=== PATIENT | female | born 1935 | race Caucasian/White ===

== ENCOUNTER 2022-12-02 13:33 | Inpatient (IN) | payer BC ==
[~2022-12-02] VITALS: Ht 165.1 cm; Wt 66.8 kg
[2022-12-02] MEDS ORDERED: SODIUM CHLORIDE 0.9% 1,000 ML IV ONE (14:00)
[2022-12-02] MEDS ORDERED: CEFEPIME 1,000 MG in DEXTROSE 5% WATER 50 ML IV SCH (14:45)
[2022-12-02] MEDS ORDERED: VANCOMYCIN 1G PREMIX 200 ML IV SCH (14:45)
[2022-12-02 15:00] LABS: BG BASE EXCESS -6.4 mmol/L (-2.0-2.0); BG CARBOXYHEMOGLOBIN 0.2 % (0.5-1.5); BG DEOXYHEMOGLOBIN 20.5 % (0.0-5.0); BG HCO3 ACT 16.8 mmol/L (22.0-26.0); BG METHEMOGLOBIN 0.3 % (0.0-1.5); BG OXYGEN SATURATION 79.4 % (92.0-98.5); BG PCO2 26.7 mmHg (35.0-45.0); BG PH 7.417 (7.350-7.450); BG PO2 47.9 mmHg (75.0-100.0); BG SAMPLE SITE RIGHT BRACHIAL; BG TOTAL HEMOGLOBIN 10.9 g/dL (12.0-18.0); BG VENT MODE ROOM AIR
[2022-12-02] MEDS ORDERED: CEFEPIME 1GM PREMIX 50 ML IV SCH (15:00)
[2022-12-02 15:17] LABS: CHLORIDE 113 mEq/L (98-107)
[2022-12-02 15:38] LABS: HEMATOCRIT. 30.9 % (36.0-48.0); HEMOGLOBIN. 9.6 g/dL (12.0-16.0); MEAN CORPUSCULAR HEMOGLOBIN 27.9 pg (28.0-32.0); MEAN CORPUSCULAR VOLUME 89.3 fL (81.0-99.0); MEAN PLATELET VOLUME 7.3 fl (7.4-10.4); PLATELET 619 x1000/uL (130-400); RED BLOOD CELL COUNT 3.45 mill/uL (4.2-5.4); RED CELL DISTRIBUTION WIDTH 15.7 % (11.6-14.6)
[2022-12-02 15:47] LABS: INR 1.1; PROTHROMBIN TIME 12.2 sec (9.6-11.0)
[2022-12-02] MEDS ORDERED: FUROSEMIDE 20MG/2ML VIAL IVP ONE (16:00)
[2022-12-02] MEDS ORDERED: FUROSEMIDE 40MG/4ML VIAL IVP NR ×2 (16:15→18:30)
[2022-12-02] MEDS: ASPIRIN 325MG EC TABLET PO ONE ×2 (16:30→17:42)
[2022-12-02] MEDS ORDERED: METHYLPREDNISOLONE SOD SUCC 125 MG/2 ML VIAL IV ONE (16:30)
[2022-12-02] MEDS ORDERED: FUROSEMIDE 40MG/4ML VIAL IVP ONE (16:30)
[2022-12-02] MEDS ORDERED: IPRATROPIUM/ALBUTEROL 0.5-3(2.5)MG/3ML NEB HHN ONE (16:30)
[2022-12-02 17:07] LABS: BG CARBOXYHEMOGLOBIN 0.3 % (0.5-1.5); BG DEOXYHEMOGLOBIN 3.8 % (0.0-5.0); BG HCO3 ACT 17.5 mmol/L (22.0-26.0); BG METHEMOGLOBIN 0.2 % (0.0-1.5); BG OXYGEN SATURATION 96.2 % (92.0-98.5); BG OXYHEMOGLOBIN 95.7 % (94.0-97.0); BG PCO2 27.7 mmHg (35.0-45.0); BG PH 7.418 (7.350-7.450); BG PO2 88.6 mmHg (75.0-100.0); BG SAMPLE SITE RIGHT BRACHIAL; BG TOTAL HEMOGLOBIN 9.6 g/dL (12.0-18.0); BG VENT MODE MASK - BIPAP
[2022-12-02] MEDS ORDERED: ACETAMINOPHEN 650MG SUPP PR PRN ×2 (17:15)
[2022-12-02] MEDS ORDERED: DEXTROSE 50% WATER 50ML SYRINGE IV PRN (17:15)
[2022-12-02] MEDS ORDERED: ONDANSETRON HCL 4MG/2ML INJ IV PRN (17:15)
[2022-12-02 17:39] LABS: PHOSPHORUS 4.8 mg/dL (2.5-4.9)
[2022-12-02] MEDS ORDERED: LEVOFLOXACIN 500MG PREMIX 100 ML IV SCH (18:00)
[2022-12-02 18:16] LABS: VITAMIN B12 SERUM > 2000.0 pg/mL (211-911)
[2022-12-02] MEDS ORDERED: NOREPINEPHRINE 8MG/250ML PMX 250 ML IV PRN (18:30)
[2022-12-02] MEDS ORDERED: IPRATROPIUM/ALBUTEROL 0.5-3(2.5)MG/3ML NEB HHN PRN (18:30)
[2022-12-02] MEDS ORDERED: DOCUSATE SODIUM 100MG CAPSULE PO PRN (18:45)
[2022-12-02] MEDS ORDERED: NOREPINEPHRINE 8 MG in DEXTROSE 5% WATER 250 ML IV PRN (18:45)
[2022-12-02] MEDS: IPRATROPIUM/ALBUTEROL 0.5-3(2.5)MG/3ML NEB HHN SCH (19:43)
[2022-12-02 20:10] LABS: NUCLEATED RED BLOOD CELLS 1 /100 WBC; PLATELET ESTIMATE MARKEDLY INCREASED
[2022-12-02] MEDS: BLOOD SUGAR DIAGNOSTIC STRIP TEST SCH (20:30)
[2022-12-02] MEDS: INSULIN LISPRO 100 UNITS/ML SUBCUT SCH ×2 (20:30→21:00)
[2022-12-02] MEDS ORDERED: FAMOTIDINE 20MG/2ML VIAL IV SCH (21:00)
[2022-12-02 22:30] VITALS: BP 82/38
[2022-12-03] VITALS (13 sets, daily range): BP systolic 74–111; BP diastolic 33–76
[2022-12-03 01:10] LABS: CREATINE KINASE MB FRACTION 9.6 ng/mL (0.5-3.6)
[2022-12-03] MEDS: IPRATROPIUM/ALBUTEROL 0.5-3(2.5)MG/3ML NEB HHN SCH ×4 (02:14→20:02)
[2022-12-03 03:53] LABS: HEMATOCRIT. 27.7 % (36.0-48.0); MEAN CORPUSCULAR HEMOGLOBIN 28.1 pg (28.0-32.0); MEAN CORPUSCULAR VOLUME 86.9 fL (81.0-99.0); MEAN PLATELET VOLUME 7.4 fl (7.4-10.4); PLATELET 482 x1000/uL (130-400); RED BLOOD CELL COUNT 3.19 mill/uL (4.2-5.4); RED CELL DISTRIBUTION WIDTH 15.9 % (11.6-14.6)
[2022-12-03 04:06] LABS: CHLORIDE 116 mEq/L (98-107)
[2022-12-03 04:21] LABS: CREATINE KINASE 356 IU/L (26-192); CREATINE KINASE MB FRACTION 9.8 ng/mL (0.5-3.6); HDL CHOLESTEROL 32 mg/dL (40-59); LDL CHOLESTEROL 64 mg/dL (5-100); PHOSPHORUS 5.3 mg/dL (2.5-4.9); T4 FREE 1.21 ng/dL (0.76-1.46)
[2022-12-03] MEDS: INSULIN LISPRO 100 UNITS/ML SUBCUT SCH ×4 (06:36→20:20)
[2022-12-03] MEDS: BLOOD SUGAR DIAGNOSTIC STRIP TEST SCH ×4 (06:36→20:19)
[2022-12-03] MEDS ORDERED: FUROSEMIDE 40MG/4ML VIAL IVP SCH (09:00)
[2022-12-03] MEDS ORDERED: SODIUM CHLORIDE 0.9% 250 ML IV ONE ×2 (09:00)
[2022-12-03] MEDS: ENOXAPARIN 30MG/0.3ML SYR SUBCUT SCH (09:13)
[2022-12-03 10:25] LABS: NUCLEATED RED BLOOD CELLS 3 /100 WBC; PLATELET ESTIMATE INCREASED
[2022-12-03 10:26] LABS: BG BASE EXCESS -6.4 mmol/L (-2.0-2.0); BG CARBOXYHEMOGLOBIN 0.3 % (0.5-1.5); BG DEOXYHEMOGLOBIN 1.5 % (0.0-5.0); BG FRACTION INSPIRED OXYGEN 80; BG HCO3 ACT 16.3 mmol/L (22.0-26.0); BG METHEMOGLOBIN 0.3 % (0.0-1.5); BG OXYGEN SATURATION 98.5 % (92.0-98.5); BG OXYHEMOGLOBIN 97.9 % (94.0-97.0); BG PCO2 23.7 mmHg (35.0-45.0); BG PH 7.454 (7.350-7.450); BG PO2 135.2 mmHg (75.0-100.0); BG SAMPLE SITE RIGHT BRACHIAL; BG TOTAL HEMOGLOBIN 9.6 g/dL (12.0-18.0); BG TOTAL RESPIRATORY RATE 24 b/min; BG VENT MODE MASK - BIPAP
[2022-12-03] MEDS ORDERED: MEMA10TA55 PO (10:42)
[2022-12-03] MEDS ORDERED: QUET25TA36 PO (10:42)
[2022-12-03] MEDS ORDERED: DONE10TA43 PO (10:42)
[2022-12-03 11:05] LABS: CREATINE KINASE 361 IU/L (26-192)
[2022-12-03] MEDS ORDERED: HALOPERIDOL LACTATE 5MG/ML VIAL IM SCH (12:00)
[2022-12-03] MEDS: ASPIRIN 300MG SUPP PR SCH ×2 (12:26→12:33)
[2022-12-03] MEDS: METRONIDAZOLE 500 MG PREMIX 100 ML IV SCH ×2 (12:34→21:17)
[2022-12-03 12:43] LABS: CREATINE KINASE MB FRACTION 9.9 ng/mL (0.5-3.6)
[2022-12-03 13:10] LABS: BG BASE EXCESS -7.6 mmol/L (-2.0-2.0); BG CARBOXYHEMOGLOBIN 0.3 % (0.5-1.5); BG DEOXYHEMOGLOBIN 23.2 % (0.0-5.0); BG FRACTION INSPIRED OXYGEN 44; BG HCO3 ACT 16.2 mmol/L (22.0-26.0); BG METHEMOGLOBIN 0.2 % (0.0-1.5); BG OXYGEN SATURATION 76.7 % (92.0-98.5); BG OXYHEMOGLOBIN 76.3 % (94.0-97.0); BG PCO2 27.7 mmHg (35.0-45.0); BG PH 7.386 (7.350-7.450); BG PO2 45.3 mmHg (75.0-100.0); BG SAMPLE SITE RIGHT BRACHIAL; BG TOTAL HEMOGLOBIN 9.8 g/dL (12.0-18.0); BG VENT MODE NASAL CANNULA
[2022-12-03 13:21] LABS: CLARITY URINE CLEAR (CLEAR); COLOR URINE DARK YELLOW (YELLOW); KETONES URINE TRACE (NEGATIVE); LEUKOCYTE ESTERASE URINE NEGATIVE (NEGATIVE); NITRITE URINE NEGATIVE (NEGATIVE); OCCULT BLOOD URINE NEGATIVE (NEGATIVE); PROTEIN URINE TRACE (NEGATIVE); SPECIFIC GRAVITY URINE 1.019 (1.005-1.030)
[2022-12-03] MEDS: MIDODRINE HCL 5MG TABLET PO SCH ×2 (16:05→21:17)
[2022-12-03] MEDS: MEMANTINE HCL 10MG TABLET PO SCH (16:09)
[2022-12-03] MEDS ORDERED: VANCOMYCIN 750MG PREMIX 150 ML IV NR (17:00)
[2022-12-03] MEDS ORDERED: LEVOFLOXACIN 250MG PREMIX 50 ML IV SCH (17:30)
[2022-12-03] MEDS ORDERED: DIGOXIN 500MCG/2ML AMP IV NR (18:45)
[2022-12-03] MEDS ORDERED: ALEN70TA79 MT (18:57)
[2022-12-03] MEDS ORDERED: MELA5TAB21 MT (18:57)
[2022-12-03] MEDS ORDERED: AMLO5TAB88 MT (18:57)
[2022-12-03] MEDS ORDERED: ASPI-1497 MT (18:57)
[2022-12-03] MEDS ORDERED: LOSA1TAB34 MT (18:57)
[2022-12-03] MEDS: DONEPEZIL HCL 10MG TABLET PO SCH (21:16)
[2022-12-03] MEDS: QUETIAPINE FUMARATE 25MG TABLET PO SCH (21:17)
[2022-12-04] VITALS (41 sets, daily range): BP systolic 31–101; BP diastolic 17–65
[2022-12-04] MEDS: IPRATROPIUM/ALBUTEROL 0.5-3(2.5)MG/3ML NEB HHN SCH ×4 (02:10→20:25)
[2022-12-04] MEDS: METRONIDAZOLE 500 MG PREMIX 100 ML IV SCH ×3 (05:03→20:48)
[2022-12-04 06:12] LABS: HEMATOCRIT. 26.3 % (36.0-48.0); HEMOGLOBIN. 8.5 g/dL (12.0-16.0); MEAN CORPUSCULAR HEMOGLOBIN 27.6 pg (28.0-32.0); MEAN CORPUSCULAR VOLUME 85.2 fL (81.0-99.0); MEAN PLATELET VOLUME 7.6 fl (7.4-10.4); PLATELET 396 x1000/uL (130-400); RED BLOOD CELL COUNT 3.09 mill/uL (4.2-5.4); RED CELL DISTRIBUTION WIDTH 15.7 % (11.6-14.6)
[2022-12-04] MEDS: BLOOD SUGAR DIAGNOSTIC STRIP TEST SCH ×4 (06:14→20:48)
[2022-12-04] MEDS: INSULIN LISPRO 100 UNITS/ML SUBCUT SCH ×4 (06:14→21:00)
[2022-12-04 06:21] LABS: CHLORIDE 114 mEq/L (98-107)
[2022-12-04 06:29] LABS: PHOSPHORUS 5.8 mg/dL (2.5-4.9)
[2022-12-04] MEDS: MEMANTINE HCL 10MG TABLET PO SCH ×2 (08:31→17:10)
[2022-12-04] MEDS: MIDODRINE HCL 5MG TABLET PO SCH ×3 (08:31→17:10)
[2022-12-04] MEDS: ENOXAPARIN 30MG/0.3ML SYR SUBCUT SCH (08:32)
[2022-12-04] MEDS ORDERED: ALBUMIN HUMAN 25GM/100ML (25%) IV SCH (09:00)
[2022-12-04 09:10] LABS: BG BASE EXCESS -6.9 mmol/L (-2.0-2.0); BG CARBOXYHEMOGLOBIN 0.3 % (0.5-1.5); BG DEOXYHEMOGLOBIN 10.2 % (0.0-5.0); BG FRACTION INSPIRED OXYGEN 100; BG HCO3 ACT 18.3 mmol/L (22.0-26.0); BG METHEMOGLOBIN 0.3 % (0.0-1.5); BG OXYGEN SATURATION 89.7 % (92.0-98.5); BG OXYHEMOGLOBIN 89.2 % (94.0-97.0); BG PCO2 35.6 mmHg (35.0-45.0); BG PO2 65.9 mmHg (75.0-100.0); BG SAMPLE SITE RIGHT BRACHIAL; BG VENT MODE HIGH FLOW
[2022-12-04 09:23] LABS: NUCLEATED RED BLOOD CELLS 1 /100 WBC
[2022-12-04 09:24] LABS: PLATELET ESTIMATE NORMAL
[2022-12-04] MEDS: FAMOTIDINE 20MG/2ML VIAL IV SCH (09:24)
[2022-12-04] MEDS: CALCIUM ACETATE 667MG CAPSULE PO SCH ×3 (09:25→17:10)
[2022-12-04] MEDS ORDERED: VANCOMYCIN 500MG PREMIX 100 ML IV NR (14:00)
[2022-12-04] MEDS ORDERED: LEVOFLOXACIN 500MG PREMIX 100 ML IV SCH (16:00)
[2022-12-04 18:57] LABS: BG CARBOXYHEMOGLOBIN 0.3 % (0.5-1.5); BG DEOXYHEMOGLOBIN 20.4 % (0.0-5.0); BG FRACTION INSPIRED OXYGEN 100; BG HCO3 ACT 17.7 mmol/L (22.0-26.0); BG METHEMOGLOBIN 0.4 % (0.0-1.5); BG OXYGEN SATURATION 79.5 % (92.0-98.5); BG OXYHEMOGLOBIN 78.9 % (94.0-97.0); BG PH 7.194 (7.350-7.450); BG PO2 55.8 mmHg (75.0-100.0); BG SAMPLE SITE RIGHT BRACHIAL; BG TOTAL HEMOGLOBIN 10.3 g/dL (12.0-18.0); BG TOTAL RESPIRATORY RATE 22 b/min; BG VENT MODE MASK - BIPAP
[2022-12-04] MEDS: PHENYLEPHRINE 100 MG in DEXT 5% WATER 240 ML IV PRN (19:33)
[2022-12-04] MEDS: QUETIAPINE FUMARATE 25MG TABLET PO SCH (20:48)
[2022-12-04] MEDS: DONEPEZIL HCL 10MG TABLET PO SCH (20:48)
[2022-12-05] VITALS (98 sets, daily range): BP systolic 58–142; BP diastolic 27–105
[2022-12-05] MEDS ORDERED: DIGOXIN 500MCG/2ML AMP IV NR (00:15)
[2022-12-05] MEDS: IPRATROPIUM/ALBUTEROL 0.5-3(2.5)MG/3ML NEB HHN SCH ×4 (04:39→20:11)
[2022-12-05] MEDS: PHENYLEPHRINE 100 MG in DEXT 5% WATER 240 ML IV PRN ×3 (05:43→23:25)
[2022-12-05] MEDS: BLOOD SUGAR DIAGNOSTIC STRIP TEST SCH ×4 (06:16→21:00)
[2022-12-05] MEDS: METRONIDAZOLE 500 MG PREMIX 100 ML IV SCH ×3 (06:16→22:10)
[2022-12-05 06:24] LABS: HEMATOCRIT. 27.8 % (36.0-48.0); HEMOGLOBIN. 8.6 g/dL (12.0-16.0); MEAN CORPUSCULAR HEMOGLOBIN 27.1 pg (28.0-32.0); MEAN CORPUSCULAR VOLUME 87.2 fL (81.0-99.0); MEAN PLATELET VOLUME 7.6 fl (7.4-10.4); PLATELET 412 x1000/uL (130-400); RED BLOOD CELL COUNT 3.18 mill/uL (4.2-5.4); RED CELL DISTRIBUTION WIDTH 16.4 % (11.6-14.6)
[2022-12-05 06:39] LABS: CHLORIDE 112 mEq/L (98-107)
[2022-12-05 06:48] LABS: PHOSPHORUS 5.6 mg/dL (2.5-4.9)
[2022-12-05] MEDS: INSULIN LISPRO 100 UNITS/ML SUBCUT SCH ×4 (07:00→21:00)
[2022-12-05] MEDS: FAMOTIDINE 20MG/2ML VIAL IV SCH (08:00)
[2022-12-05] MEDS: MIDODRINE HCL 5MG TABLET PO SCH ×3 (08:00→17:00)
[2022-12-05] MEDS: CALCIUM ACETATE 667MG CAPSULE PO SCH ×3 (08:00→17:00)
[2022-12-05] MEDS: ENOXAPARIN 30MG/0.3ML SYR SUBCUT SCH (08:00)
[2022-12-05] MEDS: MEMANTINE HCL 10MG TABLET PO SCH ×2 (08:03→17:00)
[2022-12-05] MEDS: FERROUS SULFATE 325MG TABLET PO SCH (08:03)
[2022-12-05] MEDS ORDERED: ASPIRIN 300MG SUPP PR SCH (09:00)
[2022-12-05] MEDS: CITRIC ACID/SODIUM CITRATE SOLN 30ML UDC PO SCH ×3 (09:05→17:00)
[2022-12-05] MEDS: ASPIRIN 81MG TABLET PO SCH (09:05)
[2022-12-05 09:09] LABS: BG CARBOXYHEMOGLOBIN 0.3 % (0.5-1.5); BG DEOXYHEMOGLOBIN 4.3 % (0.0-5.0); BG FRACTION INSPIRED OXYGEN 100; BG HCO3 ACT 18.6 mmol/L (22.0-26.0); BG METHEMOGLOBIN 0.3 % (0.0-1.5); BG OXYGEN SATURATION 95.7 % (92.0-98.5); BG OXYHEMOGLOBIN 95.1 % (94.0-97.0); BG PCO2 33.3 mmHg (35.0-45.0); BG PH 7.365 (7.350-7.450); BG PO2 86.1 mmHg (75.0-100.0); BG SAMPLE SITE RIGHT RADIAL; BG TOTAL HEMOGLOBIN 9.7 g/dL (12.0-18.0); BG VENT MODE MASK - BIPAP
[2022-12-05 10:20] LABS: NUCLEATED RED BLOOD CELLS 6 /100 WBC; PLATELET ESTIMATE SLIGHTLY INCREASED
[2022-12-05] MEDS ORDERED: NOREPINEPHRINE 32 MG in DEXT 5% WATER 218 ML IV PRN (11:00)
[2022-12-05] MEDS: VANCOMYCIN 750MG PREMIX 150 ML IV SCH (14:04)
[2022-12-05] MEDS ORDERED: LORAZEPAM 2MG/ML CPJ IV PRN (15:15)
[2022-12-05] MEDS ORDERED: AMIODARONE HCL 150 MG in DEXT 5% WATER 100 ML IV NR (16:30)
[2022-12-05] MEDS: METHYLPREDNISOLONE SOD SUCC 125 MG/2 ML VIAL IV SCH ×2 (17:30→23:25)
[2022-12-05] MEDS: DONEPEZIL HCL 10MG TABLET PO SCH (21:00)
[2022-12-05] MEDS: QUETIAPINE FUMARATE 25MG TABLET PO SCH (21:00)
[2022-12-06] VITALS (99 sets, daily range): BP systolic 68–132; BP diastolic 23–94
[2022-12-06] MEDS: IPRATROPIUM/ALBUTEROL 0.5-3(2.5)MG/3ML NEB HHN SCH ×4 (00:25→21:22)
[2022-12-06] MEDS: METRONIDAZOLE 500 MG PREMIX 100 ML IV SCH (05:01)
[2022-12-06] MEDS: METHYLPREDNISOLONE SOD SUCC 125 MG/2 ML VIAL IV SCH ×3 (05:01→17:34)
[2022-12-06 05:36] LABS: HEMATOCRIT 31.2 % (36.0-48.0); HEMOGLOBIN 10.1 g/dL (12.0-16.0); MEAN CORPUSCULAR HEMOGLOBIN 27.5 pg (28.0-32.0); MEAN CORPUSCULAR VOLUME 85.3 fL (81.0-99.0); PLATELET 423 x1000/uL (130-400); RED BLOOD CELL COUNT 3.66 mill/uL (4.2-5.4)
[2022-12-06 06:02] LABS: PHOSPHORUS 4.3 mg/dL (2.5-4.9)
[2022-12-06] MEDS: BLOOD SUGAR DIAGNOSTIC STRIP TEST SCH ×4 (06:30→21:41)
[2022-12-06] MEDS: INSULIN LISPRO 100 UNITS/ML SUBCUT SCH ×4 (07:00→21:00)
[2022-12-06] MEDS ORDERED: POTASSIUM CHLORIDE 20MEQ/PACKET PO NR (08:00)
[2022-12-06 08:06] LABS: BG BASE EXCESS -7.3 mmol/L (-2.0-2.0); BG CARBOXYHEMOGLOBIN 0.3 % (0.5-1.5); BG DEOXYHEMOGLOBIN 1.6 % (0.0-5.0); BG HCO3 ACT 16.9 mmol/L (22.0-26.0); BG METHEMOGLOBIN 0.3 % (0.0-1.5); BG OXYGEN SATURATION 98.4 % (92.0-98.5); BG OXYHEMOGLOBIN 97.8 % (94.0-97.0); BG PCO2 29.9 mmHg (35.0-45.0); BG PH 7.369 (7.350-7.450); BG PO2 136.4 mmHg (75.0-100.0); BG SAMPLE SITE RIGHT RADIAL; BG TOTAL HEMOGLOBIN 11.1 g/dL (12.0-18.0); BG VENT MODE MASK - BIPAP
[2022-12-06] MEDS: CITRIC ACID/SODIUM CITRATE SOLN 30ML UDC PO SCH ×3 (08:08→16:36)
[2022-12-06] MEDS: ASPIRIN 81MG TABLET PO SCH (08:08)
[2022-12-06] MEDS: MEMANTINE HCL 10MG TABLET PO SCH ×2 (08:09→16:36)
[2022-12-06] MEDS: FERROUS SULFATE 325MG TABLET PO SCH (08:09)
[2022-12-06] MEDS: MIDODRINE HCL 5MG TABLET PO SCH ×3 (08:09→16:36)
[2022-12-06] MEDS: CALCIUM ACETATE 667MG CAPSULE PO SCH ×3 (08:09→16:36)
[2022-12-06] MEDS: FAMOTIDINE 20MG/2ML VIAL IV SCH (08:26)
[2022-12-06] MEDS: ENOXAPARIN 30MG/0.3ML SYR SUBCUT SCH (08:27)
[2022-12-06] MEDS: FUROSEMIDE 20MG/2ML VIAL IVP SCH (08:32)
[2022-12-06] MEDS: PHENYLEPHRINE 100 MG in DEXT 5% WATER 240 ML IV PRN ×2 (08:44→22:53)
[2022-12-06] MEDS ORDERED: FUROSEMIDE 20MG/2ML VIAL IVP SCH (09:00)
[2022-12-06] MEDS ORDERED: KCL 20MEQ/100ML PREMIX 100 ML IV NR (09:30)
[2022-12-06] MEDS ORDERED: MEROPENEM-0.9% SODIUM CHLORIDE 100 ML IV SCH (14:00)
[2022-12-06] MEDS: MEROPENEM-0.9% SODIUM CHLORIDE 50 ML IV SCH (14:08)
[2022-12-06] MEDS: VANCOMYCIN 750MG PREMIX 150 ML IV SCH (15:47)
[2022-12-06] MEDS: QUETIAPINE FUMARATE 25MG TABLET PO SCH (21:00)
[2022-12-06] MEDS: DONEPEZIL HCL 10MG TABLET PO SCH (21:00)
[2022-12-06] MEDS ORDERED: DIGOXIN 500MCG/2ML AMP IV NR (23:15)
[2022-12-07] VITALS (95 sets, daily range): BP systolic 66–130; BP diastolic 25–93
[2022-12-07] MEDS: METHYLPREDNISOLONE SOD SUCC 125 MG/2 ML VIAL IV SCH ×4 (00:20→18:01)
[2022-12-07] MEDS: MEROPENEM-0.9% SODIUM CHLORIDE 50 ML IV SCH ×2 (02:12→13:22)
[2022-12-07] MEDS: IPRATROPIUM/ALBUTEROL 0.5-3(2.5)MG/3ML NEB HHN SCH ×4 (02:27→21:30)
[2022-12-07 04:19] LABS: HEMATOCRIT. 32.2 % (36.0-48.0); HEMOGLOBIN. 10.2 g/dL (12.0-16.0); MEAN CORPUSCULAR HEMOGLOBIN 26.8 pg (28.0-32.0); MEAN CORPUSCULAR VOLUME 84.5 fL (81.0-99.0); MEAN PLATELET VOLUME 7.8 fl (7.4-10.4); PLATELET 369 x1000/uL (130-400); RED BLOOD CELL COUNT 3.81 mill/uL (4.2-5.4); RED CELL DISTRIBUTION WIDTH 15.9 % (11.6-14.6)
[2022-12-07 05:05] LABS: PHOSPHORUS 4.1 mg/dL (2.5-4.9)
[2022-12-07 05:23] LABS: PLATELET ESTIMATE NORMAL
[2022-12-07] MEDS: BLOOD SUGAR DIAGNOSTIC STRIP TEST SCH ×5 (06:30→20:24)
[2022-12-07] MEDS: INSULIN LISPRO 100 UNITS/ML SUBCUT SCH ×5 (07:00→21:00)
[2022-12-07] MEDS: FUROSEMIDE 20MG/2ML VIAL IVP SCH (08:38)
[2022-12-07] MEDS: FAMOTIDINE 20MG/2ML VIAL IV SCH (08:38)
[2022-12-07] MEDS: CALCIUM ACETATE 667MG CAPSULE PO SCH ×3 (08:38→16:58)
[2022-12-07] MEDS: CITRIC ACID/SODIUM CITRATE SOLN 30ML UDC PO SCH ×3 (08:38→16:58)
[2022-12-07] MEDS: MEMANTINE HCL 10MG TABLET PO SCH ×2 (08:38→16:58)
[2022-12-07] MEDS: ASPIRIN 81MG TABLET PO SCH (08:39)
[2022-12-07] MEDS: MIDODRINE HCL 5MG TABLET PO SCH ×3 (08:39→16:58)
[2022-12-07] MEDS: ENOXAPARIN 30MG/0.3ML SYR SUBCUT SCH (08:39)
[2022-12-07] MEDS: FERROUS SULFATE 325MG TABLET PO SCH (08:39)
[2022-12-07] MEDS: PHENYLEPHRINE 100 MG in DEXT 5% WATER 240 ML IV PRN ×2 (10:15→20:34)
[2022-12-07] MEDS ORDERED: VASOPRESSIN 20 UNIT in SODIUM CHLORIDE 0.9% 99 ML IV PRN (11:15)
[2022-12-07] MEDS ORDERED: DEXTROSE 50% WATER 50ML SYRINGE IV PRN (11:30)
[2022-12-07] MEDS: VANCOMYCIN 750MG PREMIX 150 ML IV SCH (14:59)
[2022-12-07] MEDS: QUETIAPINE FUMARATE 25MG TABLET PO SCH (20:27)
[2022-12-07] MEDS: DONEPEZIL HCL 10MG TABLET PO SCH (20:36)
[2022-12-08] VITALS (93 sets, daily range): BP systolic 45–143; BP diastolic 16–98
[2022-12-08] MEDS: METHYLPREDNISOLONE SOD SUCC 125 MG/2 ML VIAL IV SCH ×2 (00:06→05:20)
[2022-12-08] MEDS: MEROPENEM-0.9% SODIUM CHLORIDE 50 ML IV SCH ×2 (01:22→14:55)
[2022-12-08] MEDS: IPRATROPIUM/ALBUTEROL 0.5-3(2.5)MG/3ML NEB HHN SCH ×4 (03:11→20:32)
[2022-12-08] MEDS: INSULIN LISPRO 100 UNITS/ML SUBCUT SCH ×4 (05:47→21:00)
[2022-12-08] MEDS: BLOOD SUGAR DIAGNOSTIC STRIP TEST SCH ×4 (05:47→20:45)
[2022-12-08 05:57] LABS: HEMATOCRIT. 33.7 % (36.0-48.0); HEMOGLOBIN. 10.8 g/dL (12.0-16.0); MEAN CORPUSCULAR HEMOGLOBIN 27.2 pg (28.0-32.0); PLATELET 253 x1000/uL (130-400); RED BLOOD CELL COUNT 3.97 mill/uL (4.2-5.4); RED CELL DISTRIBUTION WIDTH 15.9 % (11.6-14.6)
[2022-12-08 06:06] LABS: CHLORIDE 115 mEq/L (98-107)
[2022-12-08 06:16] LABS: PHOSPHORUS 4.1 mg/dL (2.5-4.9)
[2022-12-08 06:52] LABS: PLATELET ESTIMATE NORMAL
[2022-12-08 07:43] LABS: BG BASE EXCESS -3.2 mmol/L (-2.0-2.0); BG CARBOXYHEMOGLOBIN 0.4 % (0.5-1.5); BG DEOXYHEMOGLOBIN 8.3 % (0.0-5.0); BG HCO3 ACT 20.4 mmol/L (22.0-26.0); BG METHEMOGLOBIN 0.2 % (0.0-1.5); BG OXYGEN SATURATION 91.6 % (92.0-98.5); BG OXYHEMOGLOBIN 91.1 % (94.0-97.0); BG PCO2 32.3 mmHg (35.0-45.0); BG PH 7.419 (7.350-7.450); BG SAMPLE SITE RIGHT RADIAL; BG TOTAL HEMOGLOBIN 12.2 g/dL (12.0-18.0); BG VENT MODE MASK - BIPAP
[2022-12-08] MEDS: MIDODRINE HCL 5MG TABLET PO SCH ×3 (08:05→16:18)
[2022-12-08] MEDS: ENOXAPARIN 30MG/0.3ML SYR SUBCUT SCH (08:05)
[2022-12-08] MEDS: FAMOTIDINE 20MG/2ML VIAL IV SCH (08:05)
[2022-12-08] MEDS: FERROUS SULFATE 325MG TABLET PO SCH (08:05)
[2022-12-08] MEDS: FUROSEMIDE 20MG/2ML VIAL IVP SCH (08:05)
[2022-12-08] MEDS: MEMANTINE HCL 10MG TABLET PO SCH ×2 (08:05→16:18)
[2022-12-08] MEDS: CALCIUM ACETATE 667MG CAPSULE PO SCH ×3 (08:06→16:18)
[2022-12-08] MEDS: ASPIRIN 81MG TABLET PO SCH (08:06)
[2022-12-08] MEDS: DEXTROSE 5% WATER 1,000 ML IV SCH (08:09)
[2022-12-08] MEDS: METHYLPREDNISOLONE SOD SUCC 40 MG/ML VIAL IV SCH ×2 (13:35→21:29)
[2022-12-08] MEDS: PHENYLEPHRINE 100 MG in DEXT 5% WATER 240 ML IV PRN (14:55)
[2022-12-08] MEDS: QUETIAPINE FUMARATE 25MG TABLET PO SCH (20:45)
[2022-12-08] MEDS: DONEPEZIL HCL 10MG TABLET PO SCH (21:04)
[2022-12-09] VITALS (95 sets, daily range): BP systolic 78–170; BP diastolic 25–151
[2022-12-09] MEDS: MEROPENEM-0.9% SODIUM CHLORIDE 50 ML IV SCH ×2 (01:20→13:10)
[2022-12-09] MEDS: IPRATROPIUM/ALBUTEROL 0.5-3(2.5)MG/3ML NEB HHN SCH ×4 (02:15→20:24)
[2022-12-09] MEDS: DEXTROSE 5% WATER 1,000 ML IV SCH (05:21)
[2022-12-09] MEDS: METHYLPREDNISOLONE SOD SUCC 40 MG/ML VIAL IV SCH ×3 (05:24→21:21)
[2022-12-09] MEDS: BLOOD SUGAR DIAGNOSTIC STRIP TEST SCH ×4 (05:38→21:12)
[2022-12-09] MEDS: INSULIN LISPRO 100 UNITS/ML SUBCUT SCH ×4 (05:51→21:21)
[2022-12-09 05:54] LABS: HEMATOCRIT. 31.4 % (36.0-48.0); HEMOGLOBIN. 10.1 g/dL (12.0-16.0); MEAN CORPUSCULAR HEMOGLOBIN 27.3 pg (28.0-32.0); MEAN CORPUSCULAR VOLUME 85.1 fL (81.0-99.0); MEAN PLATELET VOLUME 8.6 fl (7.4-10.4); PLATELET 195 x1000/uL (130-400); RED BLOOD CELL COUNT 3.69 mill/uL (4.2-5.4); RED CELL DISTRIBUTION WIDTH 16.3 % (11.6-14.6)
[2022-12-09 06:01] LABS: CHLORIDE 115 mEq/L (98-107)
[2022-12-09 06:15] LABS: PHOSPHORUS 3.9 mg/dL (2.5-4.9)
[2022-12-09] MEDS: FAMOTIDINE 20MG/2ML VIAL IV SCH (08:23)
[2022-12-09] MEDS: ASPIRIN 81MG TABLET PO SCH (08:23)
[2022-12-09] MEDS: FERROUS SULFATE 325MG TABLET PO SCH (08:23)
[2022-12-09] MEDS: CALCIUM ACETATE 667MG CAPSULE PO SCH ×3 (08:23→17:30)
[2022-12-09] MEDS: FUROSEMIDE 20MG/2ML VIAL IVP SCH (08:23)
[2022-12-09] MEDS: MEMANTINE HCL 10MG TABLET PO SCH ×2 (08:23→17:30)
[2022-12-09] MEDS: ENOXAPARIN 30MG/0.3ML SYR SUBCUT SCH (08:24)
[2022-12-09] MEDS: MIDODRINE HCL 5MG TABLET PO SCH ×3 (08:24→17:30)
[2022-12-09 09:19] LABS: NUCLEATED RED BLOOD CELLS 3 /100 WBC; PLATELET ESTIMATE NORMAL
[2022-12-09 10:07] LABS: BG BASE EXCESS -1.4 mmol/L (-2.0-2.0); BG CARBOXYHEMOGLOBIN 0.1 % (0.5-1.5); BG DEOXYHEMOGLOBIN 1.3 % (0.0-5.0); BG FRACTION INSPIRED OXYGEN 50; BG HCO3 ACT 22.3 mmol/L (22.0-26.0); BG METHEMOGLOBIN 0.3 % (0.0-1.5); BG OXYGEN SATURATION 98.7 % (92.0-98.5); BG OXYHEMOGLOBIN 98.3 % (94.0-97.0); BG PCO2 33.6 mmHg (35.0-45.0); BG PH 7.439 (7.350-7.450); BG PO2 157.7 mmHg (75.0-100.0); BG SAMPLE SITE RIGHT RADIAL; BG TOTAL HEMOGLOBIN 10.9 g/dL (12.0-18.0); BG VENT MODE MASK - BIPAP
[2022-12-09] MEDS ORDERED: MIDODRINE HCL 5MG TABLET PO SCH (11:15)
[2022-12-09] MEDS: QUETIAPINE FUMARATE 25MG TABLET PO SCH (21:00)
[2022-12-09] MEDS: DONEPEZIL HCL 10MG TABLET PO SCH (21:09)
[2022-12-10] VITALS (93 sets, daily range): BP systolic 83–131; BP diastolic 45–101
[2022-12-10] MEDS: IPRATROPIUM/ALBUTEROL 0.5-3(2.5)MG/3ML NEB HHN SCH ×4 (00:45→20:13)
[2022-12-10] MEDS: MEROPENEM-0.9% SODIUM CHLORIDE 50 ML IV SCH ×2 (02:18→14:10)
[2022-12-10 05:11] LABS: HEMATOCRIT. 30.6 % (36.0-48.0); HEMOGLOBIN. 9.7 g/dL (12.0-16.0); MEAN CORPUSCULAR HEMOGLOBIN 26.9 pg (28.0-32.0); MEAN CORPUSCULAR VOLUME 84.7 fL (81.0-99.0); MEAN PLATELET VOLUME 8.6 fl (7.4-10.4); PLATELET 201 x1000/uL (130-400); RED BLOOD CELL COUNT 3.61 mill/uL (4.2-5.4); RED CELL DISTRIBUTION WIDTH 16.3 % (11.6-14.6)
[2022-12-10 05:25] LABS: CHLORIDE 112 mEq/L (98-107)
[2022-12-10 05:35] LABS: PHOSPHORUS 3.5 mg/dL (2.5-4.9)
[2022-12-10] MEDS: BLOOD SUGAR DIAGNOSTIC STRIP TEST SCH ×4 (05:48→23:36)
[2022-12-10] MEDS: METHYLPREDNISOLONE SOD SUCC 40 MG/ML VIAL IV SCH ×3 (06:00→21:30)
[2022-12-10] MEDS: INSULIN LISPRO 100 UNITS/ML SUBCUT SCH ×4 (06:01→23:37)
[2022-12-10 06:34] LABS: PLATELET ESTIMATE NORMAL
[2022-12-10] MEDS: DEXTROSE 5% WATER 1,000 ML IV SCH (07:14)
[2022-12-10 07:58] LABS: BG BASE EXCESS -2.1 mmol/L (-2.0-2.0); BG CARBOXYHEMOGLOBIN 0.3 % (0.5-1.5); BG HCO3 ACT 22.1 mmol/L (22.0-26.0); BG METHEMOGLOBIN 0.4 % (0.0-1.5); BG OXYHEMOGLOBIN 97.3 % (94.0-97.0); BG PCO2 35.8 mmHg (35.0-45.0); BG PH 7.409 (7.350-7.450); BG PO2 110.3 mmHg (75.0-100.0); BG SAMPLE SITE RIGHT RADIAL; BG TOTAL HEMOGLOBIN 11.2 g/dL (12.0-18.0); BG VENT MODE VAPOTHERM
[2022-12-10] MEDS: FAMOTIDINE 20MG/2ML VIAL IV SCH (08:43)
[2022-12-10] MEDS: CALCIUM ACETATE 667MG CAPSULE PO SCH ×3 (08:44→17:00)
[2022-12-10] MEDS: FERROUS SULFATE 325MG TABLET PO SCH (08:44)
[2022-12-10] MEDS: MIDODRINE HCL 5MG TABLET PO SCH ×3 (08:44→17:00)
[2022-12-10] MEDS: FUROSEMIDE 20MG/2ML VIAL IVP SCH (08:44)
[2022-12-10] MEDS: ASPIRIN 81MG TABLET PO SCH (08:44)
[2022-12-10] MEDS: ENOXAPARIN 30MG/0.3ML SYR SUBCUT SCH (08:44)
[2022-12-10] MEDS: MEMANTINE HCL 10MG TABLET PO SCH ×2 (08:44→17:00)
[2022-12-10] MEDS: DONEPEZIL HCL 10MG TABLET PO SCH (20:53)
[2022-12-10] MEDS: QUETIAPINE FUMARATE 25MG TABLET PO SCH (20:53)
[2022-12-11] VITALS (73 sets, daily range): BP systolic 85–125; BP diastolic 43–83
[2022-12-11] MEDS: IPRATROPIUM/ALBUTEROL 0.5-3(2.5)MG/3ML NEB HHN SCH ×4 (00:27→21:25)
[2022-12-11] MEDS: MEROPENEM-0.9% SODIUM CHLORIDE 50 ML IV SCH (03:21)
[2022-12-11] MEDS: BLOOD SUGAR DIAGNOSTIC STRIP TEST SCH ×3 (05:54→17:02)
[2022-12-11] MEDS: INSULIN LISPRO 100 UNITS/ML SUBCUT SCH ×3 (05:59→17:11)
[2022-12-11] MEDS: METHYLPREDNISOLONE SOD SUCC 40 MG/ML VIAL IV SCH (05:59)
[2022-12-11 06:03] LABS: HEMATOCRIT. 32.2 % (36.0-48.0); HEMOGLOBIN. 10.4 g/dL (12.0-16.0); MEAN CORPUSCULAR HEMOGLOBIN 26.8 pg (28.0-32.0); MEAN CORPUSCULAR VOLUME 83.3 fL (81.0-99.0); MEAN PLATELET VOLUME 8.7 fl (7.4-10.4); PLATELET 195 x1000/uL (130-400); RED BLOOD CELL COUNT 3.87 mill/uL (4.2-5.4); RED CELL DISTRIBUTION WIDTH 16.5 % (11.6-14.6)
[2022-12-11 06:44] LABS: CHLORIDE 112 mEq/L (98-107)
[2022-12-11 06:52] LABS: PHOSPHORUS 3.3 mg/dL (2.5-4.9)
[2022-12-11] MEDS: FERROUS SULFATE 325MG TABLET PO SCH (08:25)
[2022-12-11] MEDS: DEXTROSE 5% WATER 1,000 ML IV SCH (08:25)
[2022-12-11] MEDS: FUROSEMIDE 20MG/2ML VIAL IVP SCH (08:25)
[2022-12-11] MEDS: CALCIUM ACETATE 667MG CAPSULE PO SCH ×3 (08:25→17:08)
[2022-12-11] MEDS: ASPIRIN 81MG TABLET PO SCH (08:25)
[2022-12-11] MEDS: FAMOTIDINE 20MG/2ML VIAL IV SCH (08:25)
[2022-12-11] MEDS: MIDODRINE HCL 5MG TABLET PO SCH ×3 (08:26→17:08)
[2022-12-11] MEDS: ENOXAPARIN 30MG/0.3ML SYR SUBCUT SCH (08:26)
[2022-12-11 08:28] LABS: BG BASE EXCESS 0.7 mmol/L (-2.0-2.0); BG CARBOXYHEMOGLOBIN 0.3 % (0.5-1.5); BG DEOXYHEMOGLOBIN 0.9 % (0.0-5.0); BG HCO3 ACT 24.2 mmol/L (22.0-26.0); BG METHEMOGLOBIN 0.4 % (0.0-1.5); BG OXYGEN SATURATION 99.1 % (92.0-98.5); BG OXYHEMOGLOBIN 98.4 % (94.0-97.0); BG PCO2 34.5 mmHg (35.0-45.0); BG PH 7.463 (7.350-7.450); BG PO2 159.8 mmHg (75.0-100.0); BG SAMPLE SITE RIGHT RADIAL; BG TOTAL HEMOGLOBIN 10.8 g/dL (12.0-18.0); BG VENT MODE VAPOTHERM
[2022-12-11] MEDS: MEMANTINE HCL 10MG TABLET PO SCH ×2 (08:32→17:08)
[2022-12-11 08:48] LABS: NUCLEATED RED BLOOD CELLS 2 /100 WBC
[2022-12-11 08:49] LABS: PLATELET ESTIMATE NORMAL
[2022-12-11] MEDS: METRONIDAZOLE 500 MG PREMIX 100 ML IV SCH ×2 (14:13→22:15)
[2022-12-11 20:18] LABS: CLARITY URINE CLEAR (CLEAR); COLOR URINE YELLOW (YELLOW); KETONES URINE NEGATIVE (NEGATIVE); LEUKOCYTE ESTERASE URINE NEGATIVE (NEGATIVE); NITRITE URINE NEGATIVE (NEGATIVE); OCCULT BLOOD URINE 2+ (NEGATIVE); PH URINE 5.5 (4.5-8.0); PROTEIN URINE NEGATIVE (NEGATIVE); SPECIFIC GRAVITY URINE 1.015 (1.005-1.030); UROBILINOGEN URINE 0.2 E.U./dL (0.2-1.0)
[2022-12-11] MEDS ORDERED: METHYLPREDNISOLONE SOD SUCC 40 MG/ML VIAL IV SCH (21:00)
[2022-12-11] MEDS: QUETIAPINE FUMARATE 25MG TABLET PO SCH (22:15)
[2022-12-11] MEDS: DONEPEZIL HCL 10MG TABLET PO SCH (22:15)
[2022-12-12] VITALS (20 sets, daily range): BP systolic 98–121; BP diastolic 47–74
[2022-12-12] MEDS: BLOOD SUGAR DIAGNOSTIC STRIP TEST SCH ×4 (00:19→18:47)
[2022-12-12] MEDS: INSULIN LISPRO 100 UNITS/ML SUBCUT SCH ×4 (00:20→18:00)
[2022-12-12] MEDS: IPRATROPIUM/ALBUTEROL 0.5-3(2.5)MG/3ML NEB HHN SCH ×4 (02:43→20:28)
[2022-12-12] MEDS: METRONIDAZOLE 500 MG PREMIX 100 ML IV SCH ×3 (05:56→22:17)
[2022-12-12] MEDS: MEMANTINE HCL 10MG TABLET PO SCH ×2 (09:00→17:43)
[2022-12-12] MEDS: FUROSEMIDE 20MG/2ML VIAL IVP SCH (09:43)
[2022-12-12] MEDS: FAMOTIDINE 20MG/2ML VIAL IV SCH (09:43)
[2022-12-12] MEDS: FERROUS SULFATE 325MG TABLET PO SCH (09:43)
[2022-12-12] MEDS: ASPIRIN 81MG TABLET PO SCH (09:43)
[2022-12-12] MEDS: CALCIUM ACETATE 667MG CAPSULE PO SCH ×3 (09:45→17:43)
[2022-12-12] MEDS: MIDODRINE HCL 5MG TABLET PO SCH ×3 (09:45→17:44)
[2022-12-12] MEDS: ENOXAPARIN 30MG/0.3ML SYR SUBCUT SCH (09:46)
[2022-12-12] MEDS ORDERED: IPRATROPIUM BROMIDE (0.02%) 0.5MG/2.5ML NEB HHN SCH (18:00)
[2022-12-12] MEDS ORDERED: ALBUTEROL (0.083%) 2.5MG/3ML NEB HHN SCH (18:00)
[2022-12-13] VITALS (12 sets, daily range): BP systolic 103–121; BP diastolic 54–72
[2022-12-13] MEDS: INSULIN LISPRO 100 UNITS/ML SUBCUT SCH ×4 (01:17→18:14)
[2022-12-13] MEDS: IPRATROPIUM/ALBUTEROL 0.5-3(2.5)MG/3ML NEB HHN SCH ×4 (01:48→20:51)
[2022-12-13] MEDS: METRONIDAZOLE 500 MG PREMIX 100 ML IV SCH ×3 (06:37→22:32)
[2022-12-13] MEDS: BLOOD SUGAR DIAGNOSTIC STRIP TEST SCH ×4 (06:38→18:59)
[2022-12-13] MEDS: METHYLPREDNISOLONE SOD SUCC 40 MG/ML VIAL IV SCH (09:51)
[2022-12-13] MEDS: MIDODRINE HCL 5MG TABLET PO SCH ×3 (09:51→17:49)
[2022-12-13] MEDS: CALCIUM ACETATE 667MG CAPSULE PO SCH ×3 (09:51→17:49)
[2022-12-13] MEDS: ASPIRIN 81MG TABLET PO SCH (09:52)
[2022-12-13] MEDS: ENOXAPARIN 30MG/0.3ML SYR SUBCUT SCH (09:52)
[2022-12-13] MEDS: FUROSEMIDE 20MG/2ML VIAL IVP SCH (09:53)
[2022-12-13] MEDS: FERROUS SULFATE 325MG TABLET PO SCH (10:13)
[2022-12-13] MEDS: QUETIAPINE FUMARATE 25MG TABLET PO SCH (22:32)
[2022-12-13] MEDS: DONEPEZIL HCL 10MG TABLET PO SCH (22:33)
[2022-12-14] VITALS (12 sets, daily range): BP systolic 98–140; BP diastolic 47–110
[2022-12-14] MEDS: INSULIN LISPRO 100 UNITS/ML SUBCUT SCH ×4 (00:51→18:36)
[2022-12-14] MEDS: BLOOD SUGAR DIAGNOSTIC STRIP TEST SCH ×4 (00:51→18:29)
[2022-12-14] MEDS: IPRATROPIUM/ALBUTEROL 0.5-3(2.5)MG/3ML NEB HHN SCH ×4 (02:24→21:09)
[2022-12-14] MEDS: METRONIDAZOLE 500 MG PREMIX 100 ML IV SCH ×3 (05:43→21:11)
[2022-12-14 07:02] LABS: HEMATOCRIT. 32.4 % (36.0-48.0); HEMOGLOBIN. 10.1 g/dL (12.0-16.0); MEAN CORPUSCULAR HEMOGLOBIN 26.3 pg (28.0-32.0); MEAN CORPUSCULAR VOLUME 84.3 fL (81.0-99.0); MEAN PLATELET VOLUME 9.7 fl (7.4-10.4); PLATELET 267 x1000/uL (130-400); RED BLOOD CELL COUNT 3.84 mill/uL (4.2-5.4); RED CELL DISTRIBUTION WIDTH 16.4 % (11.6-14.6)
[2022-12-14 07:43] LABS: CHLORIDE 114 mEq/L (98-107)
[2022-12-14] MEDS: FERROUS SULFATE 325MG TABLET PO SCH (09:19)
[2022-12-14] MEDS: ENOXAPARIN 30MG/0.3ML SYR SUBCUT SCH (09:19)
[2022-12-14] MEDS: CALCIUM ACETATE 667MG CAPSULE PO SCH ×3 (09:19→18:35)
[2022-12-14] MEDS: ASPIRIN 81MG TABLET PO SCH (09:19)
[2022-12-14] MEDS: MIDODRINE HCL 5MG TABLET PO SCH ×3 (09:19→18:35)
[2022-12-14] MEDS: QUETIAPINE FUMARATE 25MG TABLET PO SCH (09:20)
[2022-12-14] MEDS: METHYLPREDNISOLONE SOD SUCC 40 MG/ML VIAL IV SCH (09:29)
[2022-12-14] MEDS: SODIUM CHLORIDE 0.45% 1,000 ML IV SCH (09:30)
[2022-12-14 13:06] LABS: PLATELET ESTIMATE NORMAL
[2022-12-14] MEDS: MICAFUNGIN 100 MG in SODIUM CHLORIDE 0.9% 100 ML IV SCH (21:05)
[2022-12-14] MEDS: DONEPEZIL HCL 10MG TABLET PO SCH (21:05)
[2022-12-15] VITALS (12 sets, daily range): BP systolic 111–148; BP diastolic 73–110
[2022-12-15] MEDS: INSULIN LISPRO 100 UNITS/ML SUBCUT SCH ×5 (01:36→23:07)
[2022-12-15] MEDS: SODIUM CHLORIDE 0.45% 1,000 ML IV SCH (01:39)
[2022-12-15] MEDS: IPRATROPIUM/ALBUTEROL 0.5-3(2.5)MG/3ML NEB HHN SCH ×2 (02:26→08:58)
[2022-12-15] MEDS: METRONIDAZOLE 500 MG PREMIX 100 ML IV SCH ×3 (05:11→22:08)
[2022-12-15] MEDS: BLOOD SUGAR DIAGNOSTIC STRIP TEST SCH ×4 (05:11→18:53)
[2022-12-15 07:08] LABS: HEMATOCRIT. 30.9 % (36.0-48.0); HEMOGLOBIN. 9.6 g/dL (12.0-16.0); MEAN CORPUSCULAR HEMOGLOBIN 26.3 pg (28.0-32.0); MEAN CORPUSCULAR VOLUME 84.7 fL (81.0-99.0); MEAN PLATELET VOLUME 9.6 fl (7.4-10.4); PLATELET 318 x1000/uL (130-400); RED BLOOD CELL COUNT 3.65 mill/uL (4.2-5.4); RED CELL DISTRIBUTION WIDTH 16.6 % (11.6-14.6)
[2022-12-15 07:29] LABS: CHLORIDE 114 mEq/L (98-107)
[2022-12-15] MEDS: METHYLPREDNISOLONE SOD SUCC 40 MG/ML VIAL IV SCH (09:16)
[2022-12-15] MEDS: ASPIRIN 81MG TABLET PO SCH (09:17)
[2022-12-15] MEDS: CALCIUM ACETATE 667MG CAPSULE PO SCH ×3 (09:17→19:01)
[2022-12-15] MEDS: FERROUS SULFATE 325MG TABLET PO SCH (09:17)
[2022-12-15] MEDS: ENOXAPARIN 30MG/0.3ML SYR SUBCUT SCH (09:17)
[2022-12-15] MEDS: MIDODRINE HCL 5MG TABLET PO SCH ×3 (09:18→19:02)
[2022-12-15] MEDS: QUETIAPINE FUMARATE 25MG TABLET PO SCH (09:34)
[2022-12-15 10:07] LABS: PLATELET ESTIMATE NORMAL
[2022-12-15] MEDS ORDERED: GUAIFENESIN-DM 200MG-20MG/10ML UDC PO PRN (11:00)
[2022-12-15] MEDS ORDERED: IPRATROPIUM/ALBUTEROL 0.5-3(2.5)MG/3ML NEB HHN PRN (11:00)
[2022-12-15 11:25] LABS: BG BASE EXCESS 5.9 mmol/L (-2.0-2.0); BG CARBOXYHEMOGLOBIN 0.5 % (0.5-1.5); BG DEOXYHEMOGLOBIN 19.4 % (0.0-5.0); BG FRACTION INSPIRED OXYGEN 36; BG HCO3 ACT 29.5 mmol/L (22.0-26.0); BG METHEMOGLOBIN 0.2 % (0.0-1.5); BG OXYGEN SATURATION 80.5 % (92.0-98.5); BG OXYHEMOGLOBIN 79.9 % (94.0-97.0); BG PCO2 39.1 mmHg (35.0-45.0); BG PH 7.496 (7.350-7.450); BG SAMPLE SITE RIGHT RADIAL; BG TOTAL HEMOGLOBIN 10.7 g/dL (12.0-18.0); BG VENT MODE NASAL CANNULA
[2022-12-15] MEDS: IPRATROPIUM BROMIDE (0.02%) 0.5MG/2.5ML NEB HHN SCH (20:51)
[2022-12-15] MEDS: DONEPEZIL HCL 10MG TABLET PO SCH (22:08)
[2022-12-15] MEDS: MICAFUNGIN 100 MG in SODIUM CHLORIDE 0.9% 100 ML IV SCH (22:08)
[2022-12-16] VITALS (13 sets, daily range): BP systolic 105–148; BP diastolic 56–95
[2022-12-16] MEDS: IPRATROPIUM BROMIDE (0.02%) 0.5MG/2.5ML NEB HHN SCH ×3 (02:15→21:02)
[2022-12-16] MEDS: BLOOD SUGAR DIAGNOSTIC STRIP TEST SCH ×4 (06:33→17:18)
[2022-12-16] MEDS: METRONIDAZOLE 500 MG PREMIX 100 ML IV SCH (06:39)
[2022-12-16] MEDS: INSULIN LISPRO 100 UNITS/ML SUBCUT SCH ×3 (06:40→18:02)
[2022-12-16] MEDS: CALCIUM ACETATE 667MG CAPSULE PO SCH ×3 (08:43→18:01)
[2022-12-16] MEDS: FERROUS SULFATE 325MG TABLET PO SCH (08:44)
[2022-12-16] MEDS: METHYLPREDNISOLONE SOD SUCC 40 MG/ML VIAL IV SCH (08:44)
[2022-12-16] MEDS: MIDODRINE HCL 5MG TABLET PO SCH ×3 (08:44→18:02)
[2022-12-16] MEDS: QUETIAPINE FUMARATE 25MG TABLET PO SCH (08:45)
[2022-12-16] MEDS: ENOXAPARIN 30MG/0.3ML SYR SUBCUT SCH ×2 (08:45→15:15)
[2022-12-16 10:23] LABS: HEMATOCRIT. 31.1 % (36.0-48.0); HEMOGLOBIN. 9.6 g/dL (12.0-16.0); MEAN CORPUSCULAR HEMOGLOBIN 26.5 pg (28.0-32.0); MEAN PLATELET VOLUME 10.3 fl (7.4-10.4); PLATELET 284 x1000/uL (130-400); RED BLOOD CELL COUNT 3.62 mill/uL (4.2-5.4); RED CELL DISTRIBUTION WIDTH 16.6 % (11.6-14.6)
[2022-12-16 10:34] LABS: INR 1.1
[2022-12-16] MEDS ORDERED: DIGOXIN 500MCG/2ML AMP IV NR (12:15)
[2022-12-16 13:27] LABS: CHLORIDE 115 mEq/L (98-107)
[2022-12-16 13:36] LABS: PLATELET ESTIMATE NORMAL
[2022-12-16] MEDS: MICAFUNGIN 100 MG in SODIUM CHLORIDE 0.9% 100 ML IV SCH (20:00)
[2022-12-16] MEDS: DONEPEZIL HCL 10MG TABLET PO SCH (22:34)
[2022-12-17] VITALS (12 sets, daily range): BP systolic 95–149; BP diastolic 48–103
[2022-12-17] MEDS: INSULIN LISPRO 100 UNITS/ML SUBCUT SCH
[2022-12-17] MEDS: IPRATROPIUM BROMIDE (0.02%) 0.5MG/2.5ML NEB HHN SCH ×2 (02:16→07:49)
[2022-12-17 07:20] LABS: HEMATOCRIT. 28.6 % (36.0-48.0); MEAN CORPUSCULAR HEMOGLOBIN 26.4 pg (28.0-32.0); MEAN CORPUSCULAR VOLUME 84.4 fL (81.0-99.0); MEAN PLATELET VOLUME 10.2 fl (7.4-10.4); PLATELET 379 x1000/uL (130-400); RED CELL DISTRIBUTION WIDTH 16.7 % (11.6-14.6)
[2022-12-17 09:10] LABS: CHLORIDE 114 mEq/L (98-107)
[2022-12-17] MEDS: FERROUS SULFATE 325MG TABLET PO SCH (09:28)
[2022-12-17] MEDS: CALCIUM ACETATE 667MG CAPSULE PO SCH ×3 (09:29→17:00)
[2022-12-17] MEDS: MIDODRINE HCL 5MG TABLET PO SCH ×3 (09:36→18:15)
[2022-12-17] MEDS: METHYLPREDNISOLONE SOD SUCC 40 MG/ML VIAL IV SCH (09:37)
[2022-12-17 09:53] LABS: PLATELET ESTIMATE NORMAL
[2022-12-17] MEDS: QUETIAPINE FUMARATE 25MG TABLET PO SCH (10:00)
[2022-12-17 10:11] LABS: BG BASE EXCESS 2.2 mmol/L (-2.0-2.0); BG CARBOXYHEMOGLOBIN 0.2 % (0.5-1.5); BG FRACTION INSPIRED OXYGEN 60; BG HCO3 ACT 25.4 mmol/L (22.0-26.0); BG METHEMOGLOBIN 0.5 % (0.0-1.5); BG OXYHEMOGLOBIN 93.3 % (94.0-97.0); BG PCO2 34.3 mmHg (35.0-45.0); BG PH 7.488 (7.350-7.450); BG PO2 73.4 mmHg (75.0-100.0); BG SAMPLE SITE RIGHT RADIAL; BG TOTAL HEMOGLOBIN 9.8 g/dL (12.0-18.0); BG VENT MODE HIGH FLOW
[2022-12-17] MEDS: BLOOD SUGAR DIAGNOSTIC STRIP TEST SCH ×3 (12:00→18:17)
[2022-12-17] MEDS: IPRATROPIUM/ALBUTEROL 0.5-3(2.5)MG/3ML NEB HHN SCH ×2 (13:58→20:35)
[2022-12-17] MEDS: ACETYLCYSTEINE 200MG/ML 20% VIAL 4ML INH SCH (13:59)
[2022-12-17] MEDS: ENOXAPARIN 30MG/0.3ML SYR SUBCUT SCH (18:16)
[2022-12-17] MEDS: MICAFUNGIN 100 MG in SODIUM CHLORIDE 0.9% 100 ML IV SCH (22:20)
[2022-12-17] MEDS: DONEPEZIL HCL 10MG TABLET PO SCH (22:20)
[2022-12-18] VITALS (12 sets, daily range): BP systolic 109–160; BP diastolic 50–82
[2022-12-18] MEDS: INSULIN LISPRO 100 UNITS/ML SUBCUT SCH ×4 (00:20→18:41)
[2022-12-18] MEDS: IPRATROPIUM/ALBUTEROL 0.5-3(2.5)MG/3ML NEB HHN SCH ×4 (01:52→20:07)
[2022-12-18 06:30] LABS: HEMATOCRIT. 29.6 % (36.0-48.0); HEMOGLOBIN. 9.3 g/dL (12.0-16.0); MEAN CORPUSCULAR HEMOGLOBIN 26.7 pg (28.0-32.0); MEAN CORPUSCULAR VOLUME 84.8 fL (81.0-99.0); MEAN PLATELET VOLUME 9.9 fl (7.4-10.4); PLATELET 382 x1000/uL (130-400); RED BLOOD CELL COUNT 3.49 mill/uL (4.2-5.4); RED CELL DISTRIBUTION WIDTH 16.8 % (11.6-14.6)
[2022-12-18 07:04] LABS: CHLORIDE 115 mEq/L (98-107)
[2022-12-18 07:17] LABS: PHOSPHORUS 3.4 mg/dL (2.5-4.9)
[2022-12-18] MEDS: METHYLPREDNISOLONE SOD SUCC 40 MG/ML VIAL IV SCH (08:27)
[2022-12-18] MEDS: FERROUS SULFATE 325MG TABLET PO SCH (08:28)
[2022-12-18] MEDS: CALCIUM ACETATE 667MG CAPSULE PO SCH ×3 (08:28→16:08)
[2022-12-18] MEDS: MIDODRINE HCL 5MG TABLET PO SCH ×3 (08:29→16:10)
[2022-12-18] MEDS: QUETIAPINE FUMARATE 25MG TABLET PO SCH (08:31)
[2022-12-18] MEDS: ACETYLCYSTEINE 200MG/ML 20% VIAL 4ML INH SCH ×2 (09:31→15:27)
[2022-12-18 09:32] LABS: PLATELET ESTIMATE NORMAL
[2022-12-18] MEDS: BLOOD SUGAR DIAGNOSTIC STRIP TEST SCH ×2 (11:24→17:00)
[2022-12-18] MEDS: ENOXAPARIN 30MG/0.3ML SYR SUBCUT SCH (14:19)
[2022-12-18] MEDS: MICAFUNGIN 100 MG in SODIUM CHLORIDE 0.9% 100 ML IV SCH (21:27)
[2022-12-18] MEDS: DONEPEZIL HCL 10MG TABLET PO SCH (21:28)
[2022-12-19] VITALS (11 sets, daily range): BP systolic 110–138; BP diastolic 54–89
[2022-12-19] MEDS: BLOOD SUGAR DIAGNOSTIC STRIP TEST SCH ×4 (00:18→17:58)
[2022-12-19] MEDS: INSULIN LISPRO 100 UNITS/ML SUBCUT SCH ×4 (00:20→18:27)
[2022-12-19] MEDS: IPRATROPIUM/ALBUTEROL 0.5-3(2.5)MG/3ML NEB HHN SCH ×4 (02:08→21:09)
[2022-12-19 06:39] LABS: HEMATOCRIT. 30.5 % (36.0-48.0); HEMOGLOBIN. 9.7 g/dL (12.0-16.0); MEAN CORPUSCULAR VOLUME 85.2 fL (81.0-99.0); PLATELET 353 x1000/uL (130-400); RED BLOOD CELL COUNT 3.59 mill/uL (4.2-5.4); RED CELL DISTRIBUTION WIDTH 16.9 % (11.6-14.6)
[2022-12-19 06:45] LABS: PROTHROMBIN TIME 10.3 sec (9.6-11.0)
[2022-12-19 08:09] LABS: CHLORIDE 116 mEq/L (98-107)
[2022-12-19] MEDS ORDERED: SODIUM POLYSTYRENE SULFONATE 15 G/60 ML BOT PO NR (08:45)
[2022-12-19] MEDS: CALCIUM ACETATE 667MG CAPSULE PO SCH ×3 (09:00→17:58)
[2022-12-19] MEDS ORDERED: DIGOXIN 500MCG/2ML AMP IV NR (12:45)
[2022-12-19] MEDS: METHYLPREDNISOLONE SOD SUCC 40 MG/ML VIAL IV SCH (13:27)
[2022-12-19] MEDS: MIDODRINE HCL 5MG TABLET PO SCH ×3 (13:28→17:58)
[2022-12-19] MEDS: FERROUS SULFATE 325MG TABLET PO SCH (13:28)
[2022-12-19] MEDS: QUETIAPINE FUMARATE 25MG TABLET PO SCH (13:28)
[2022-12-19] MEDS: ACETYLCYSTEINE 200MG/ML 20% VIAL 4ML INH SCH (14:50)
[2022-12-19 15:06] LABS: PLATELET ESTIMATE NORMAL
[2022-12-19 16:41] LABS: HEMATOCRIT. 29.5 % (36.0-48.0); HEMOGLOBIN. 8.9 g/dL (12.0-16.0); MEAN CORPUSCULAR HEMOGLOBIN 26.4 pg (28.0-32.0); MEAN CORPUSCULAR VOLUME 87.2 fL (81.0-99.0); MEAN PLATELET VOLUME 9.7 fl (7.4-10.4); PLATELET 327 x1000/uL (130-400); RED BLOOD CELL COUNT 3.39 mill/uL (4.2-5.4); RED CELL DISTRIBUTION WIDTH 17.3 % (11.6-14.6)
[2022-12-19 16:54] LABS: CHLORIDE 116 mEq/L (98-107)
[2022-12-19 19:50] LABS: NUCLEATED RED BLOOD CELLS 1 /100 WBC; PLATELET ESTIMATE NORMAL
[2022-12-19] MEDS: MICAFUNGIN 100 MG in SODIUM CHLORIDE 0.9% 100 ML IV SCH (21:15)
[2022-12-19] MEDS: DONEPEZIL HCL 10MG TABLET PO SCH (21:15)
[2022-12-20] VITALS (13 sets, daily range): BP systolic 119–149; BP diastolic 62–105
[2022-12-20] MEDS: BLOOD SUGAR DIAGNOSTIC STRIP TEST SCH ×4 (00:25→18:09)
[2022-12-20] MEDS: DEXT 5%/0.45% NACL 1000ML 1,000 ML IV SCH ×2 (00:35→13:20)
[2022-12-20] MEDS: INSULIN LISPRO 100 UNITS/ML SUBCUT SCH ×4 (00:44→18:09)
[2022-12-20] MEDS: ACETYLCYSTEINE 200MG/ML 20% VIAL 4ML INH SCH ×4 (01:02→22:00)
[2022-12-20] MEDS: IPRATROPIUM/ALBUTEROL 0.5-3(2.5)MG/3ML NEB HHN SCH ×4 (01:02→21:03)
[2022-12-20 06:53] LABS: HEMATOCRIT 28.3 % (36.0-48.0); HEMOGLOBIN 8.6 g/dL (12.0-16.0); MEAN CORPUSCULAR HEMOGLOBIN 26.4 pg (28.0-32.0); MEAN CORPUSCULAR VOLUME 87.3 fL (81.0-99.0); PLATELET 303 x1000/uL (130-400); RED BLOOD CELL COUNT 3.25 mill/uL (4.2-5.4); RED CELL DISTRIBUTION WIDTH 16.9 % (11.6-14.6)
[2022-12-20 07:04] LABS: PROTHROMBIN TIME 10.3 sec (9.6-11.0)
[2022-12-20 08:13] LABS: CHLORIDE 115 mEq/L (98-107)
[2022-12-20 08:20] LABS: PHOSPHORUS 4.1 mg/dL (2.5-4.9)
[2022-12-20] MEDS: CALCIUM ACETATE 667MG CAPSULE PO SCH ×3 (09:00→17:00)
[2022-12-20] MEDS: QUETIAPINE FUMARATE 25MG TABLET PO SCH (09:00)
[2022-12-20] MEDS: MIDODRINE HCL 5MG TABLET PO SCH ×3 (10:14→17:00)
[2022-12-20] MEDS: METHYLPREDNISOLONE SOD SUCC 40 MG/ML VIAL IV SCH (10:14)
[2022-12-20] MEDS: FERROUS SULFATE 325MG TABLET PO SCH (10:14)
[2022-12-20] MEDS ORDERED: VANCOMYCIN 1G PREMIX 200 ML IV SCH (11:00)
[2022-12-20] MEDS ORDERED: ETOMIDATE 2MG/ML 10ML VIAL IV ONE (12:01)
[2022-12-20] MEDS ORDERED: ONDANSETRON HCL 4MG/2ML INJ ONE (12:02)
[2022-12-20] MEDS ORDERED: DEXAMETHASONE 4MG/ML 1ML VIAL ONE (12:02)
[2022-12-20] MEDS: MICAFUNGIN 100 MG in SODIUM CHLORIDE 0.9% 100 ML IV SCH (21:15)
[2022-12-20] MEDS: DONEPEZIL HCL 10MG TABLET PO SCH (21:15)
[2022-12-21] VITALS (12 sets, daily range): BP systolic 105–136; BP diastolic 50–76
[2022-12-21] MEDS: BLOOD SUGAR DIAGNOSTIC STRIP TEST SCH ×4 (00:51→17:50)
[2022-12-21] MEDS: IPRATROPIUM/ALBUTEROL 0.5-3(2.5)MG/3ML NEB HHN SCH ×4 (00:57→21:56)
[2022-12-21] MEDS: DEXT 5%/0.45% NACL 1000ML 1,000 ML IV SCH (02:32)
[2022-12-21] MEDS: METOCLOPRAMIDE HCL 10MG/2ML VIAL IV SCH ×3 (05:17→17:33)
[2022-12-21] MEDS: INSULIN LISPRO 100 UNITS/ML SUBCUT SCH ×4 (05:17→17:54)
[2022-12-21] MEDS: METHYLPREDNISOLONE SOD SUCC 40 MG/ML VIAL IV SCH (09:30)
[2022-12-21] MEDS: MIDODRINE HCL 5MG TABLET PO SCH ×3 (09:31→17:33)
[2022-12-21] MEDS: FERROUS SULFATE 325MG TABLET PO SCH (09:31)
[2022-12-21] MEDS: CALCIUM ACETATE 667MG CAPSULE PO SCH ×3 (09:31→17:32)
[2022-12-21] MEDS: QUETIAPINE FUMARATE 25MG TABLET PO SCH (09:37)
[2022-12-21] MEDS: ENOXAPARIN 30MG/0.3ML SYR SUBCUT SCH (17:32)
[2022-12-21 17:47] LABS: HEMATOCRIT. 26.5 % (36.0-48.0); HEMOGLOBIN. 8.1 g/dL (12.0-16.0); MEAN CORPUSCULAR VOLUME 88.2 fL (81.0-99.0); MEAN PLATELET VOLUME 9.5 fl (7.4-10.4); PLATELET 235 x1000/uL (130-400); RED BLOOD CELL COUNT 3.01 mill/uL (4.2-5.4); RED CELL DISTRIBUTION WIDTH 18.1 % (11.6-14.6)
[2022-12-21 17:57] LABS: CHLORIDE 118 mEq/L (98-107)
[2022-12-21] MEDS: MICAFUNGIN 100 MG in SODIUM CHLORIDE 0.9% 100 ML IV SCH (22:42)
[2022-12-21] MEDS: DONEPEZIL HCL 10MG TABLET PO SCH (22:43)
[2022-12-22] VITALS (14 sets, daily range): BP systolic 119–153; BP diastolic 43–74
[2022-12-22] MEDS: METOCLOPRAMIDE HCL 10MG/2ML VIAL IV SCH ×5 (00:44→23:59)
[2022-12-22] MEDS: BLOOD SUGAR DIAGNOSTIC STRIP TEST SCH ×4 (00:44→17:33)
[2022-12-22] MEDS: IPRATROPIUM/ALBUTEROL 0.5-3(2.5)MG/3ML NEB HHN SCH ×3 (00:51→14:56)
[2022-12-22] MEDS: ACETYLCYSTEINE 200MG/ML 20% VIAL 4ML INH SCH ×3 (00:51→15:02)
[2022-12-22 04:29] LABS: PLATELET ESTIMATE NORMAL
[2022-12-22] MEDS: INSULIN LISPRO 100 UNITS/ML SUBCUT SCH ×4 (06:00→17:57)
[2022-12-22] MEDS: FERROUS SULFATE 325MG TABLET PO SCH (08:46)
[2022-12-22] MEDS: ASPIRIN 81MG TABLET PO SCH (08:47)
[2022-12-22] MEDS: MIDODRINE HCL 5MG TABLET PO SCH ×3 (08:47→17:00)
[2022-12-22] MEDS: CALCIUM ACETATE 667MG CAPSULE PO SCH ×3 (08:47→17:57)
[2022-12-22] MEDS: QUETIAPINE FUMARATE 25MG TABLET PO SCH (08:47)
[2022-12-22] MEDS: METHYLPREDNISOLONE SOD SUCC 40 MG/ML VIAL IV SCH (08:49)
[2022-12-22 14:16] LABS: BG BASE EXCESS 2.2 mmol/L (-2.0-2.0); BG CARBOXYHEMOGLOBIN 0.2 % (0.5-1.5); BG DEOXYHEMOGLOBIN 4.3 % (0.0-5.0); BG FRACTION INSPIRED OXYGEN 36; BG HCO3 ACT 26.5 mmol/L (22.0-26.0); BG METHEMOGLOBIN 0.3 % (0.0-1.5); BG OXYGEN SATURATION 95.7 % (92.0-98.5); BG OXYHEMOGLOBIN 95.2 % (94.0-97.0); BG PCO2 39.8 mmHg (35.0-45.0); BG PH 7.441 (7.350-7.450); BG PO2 83.1 mmHg (75.0-100.0); BG SAMPLE SITE RIGHT BRACHIAL; BG TOTAL HEMOGLOBIN 9.3 g/dL (12.0-18.0); BG VENT MODE NASAL CANNULA
[2022-12-22] MEDS: ENOXAPARIN 30MG/0.3ML SYR SUBCUT SCH (15:41)
[2022-12-22 16:16] LABS: CHLORIDE 117 mEq/L (98-107)
[2022-12-22 16:23] LABS: HEMATOCRIT. 29.5 % (36.0-48.0); HEMOGLOBIN. 9.1 g/dL (12.0-16.0); MEAN CORPUSCULAR HEMOGLOBIN 27.8 pg (28.0-32.0); MEAN CORPUSCULAR VOLUME 90.3 fL (81.0-99.0); MEAN PLATELET VOLUME 10.1 fl (7.4-10.4); PLATELET 218 x1000/uL (130-400); RED BLOOD CELL COUNT 3.26 mill/uL (4.2-5.4); RED CELL DISTRIBUTION WIDTH 18.2 % (11.6-14.6)
[2022-12-22 19:15] LABS: PLATELET ESTIMATE NORMAL
[2022-12-22] MEDS: DONEPEZIL HCL 10MG TABLET PO SCH (22:26)
[2022-12-22] MEDS: MICAFUNGIN 100 MG in SODIUM CHLORIDE 0.9% 100 ML IV SCH (22:27)
[2022-12-23] VITALS (11 sets, daily range): BP systolic 119–147; BP diastolic 43–91
[2022-12-23] MEDS: INSULIN LISPRO 100 UNITS/ML SUBCUT SCH ×4 (06:07→17:14)
[2022-12-23] MEDS: BLOOD SUGAR DIAGNOSTIC STRIP TEST SCH ×4 (06:07→18:57)
[2022-12-23] MEDS: METHYLPREDNISOLONE SOD SUCC 40 MG/ML VIAL IV SCH (09:00)
[2022-12-23] MEDS: ASPIRIN 81MG TABLET PO SCH (09:01)
[2022-12-23] MEDS: FERROUS SULFATE 325MG TABLET PO SCH (09:02)
[2022-12-23] MEDS: MIDODRINE HCL 5MG TABLET PO SCH ×3 (09:02→16:57)
[2022-12-23] MEDS: QUETIAPINE FUMARATE 25MG TABLET PO SCH (09:02)
[2022-12-23] MEDS: CALCIUM ACETATE 667MG CAPSULE PO SCH (09:03)
[2022-12-23 16:51] LABS: MEAN CORPUSCULAR VOLUME 87.5 fL (81.0-99.0); MEAN PLATELET VOLUME 9.7 fl (7.4-10.4); PLATELET 145 x1000/uL (130-400); RED BLOOD CELL COUNT 2.55 mill/uL (4.2-5.4); RED CELL DISTRIBUTION WIDTH 18.3 % (11.6-14.6)
[2022-12-23 17:00] LABS: CHLORIDE 119 mEq/L (98-107)
[2022-12-23] MEDS: POLYETHYLENE GLYCOL 3350 (17GM) 1 DOSE PACK PEG SCH (17:12)
[2022-12-23] MEDS: DOCUSATE SODIUM SUGAR FREE 100MG/10ML UDC NG SCH (17:12)
[2022-12-23] MEDS: ENOXAPARIN 30MG/0.3ML SYR SUBCUT SCH (17:13)
[2022-12-23 17:25] LABS: HEMATOCRIT. 22.3 % (36.0-48.0); HEMOGLOBIN. 6.9 g/dL (12.0-16.0)
[2022-12-23 21:33] LABS: PLATELET ESTIMATE NORMAL
[2022-12-23] MEDS: MICAFUNGIN 100 MG in SODIUM CHLORIDE 0.9% 100 ML IV SCH (21:39)
[2022-12-24] VITALS: BP 127/65
[2022-12-24] MEDS: BLOOD SUGAR DIAGNOSTIC STRIP TEST SCH ×5 (00:47→23:10)
[2022-12-24] MEDS: INSULIN LISPRO 100 UNITS/ML SUBCUT SCH ×5 (00:48→23:10)
[2022-12-24 04:00] VITALS: BP 133/60
[2022-12-24 07:59] LABS: MEAN CORPUSCULAR HEMOGLOBIN 27.3 pg (28.0-32.0); MEAN CORPUSCULAR VOLUME 85.6 fL (81.0-99.0); MEAN PLATELET VOLUME 9.7 fl (7.4-10.4); PLATELET 144 x1000/uL (130-400); RED BLOOD CELL COUNT 2.92 mill/uL (4.2-5.4); RED CELL DISTRIBUTION WIDTH 18.4 % (11.6-14.6)
[2022-12-24 08:00] VITALS: BP_SYST 138; BP_DIAS 70; BP_DIAS 76
[2022-12-24 08:37] LABS: CHLORIDE 120 mEq/L (98-107)
[2022-12-24] MEDS: DOCUSATE SODIUM SUGAR FREE 100MG/10ML UDC NG SCH ×2 (09:00→17:00)
[2022-12-24] MEDS: FERROUS SULFATE 300MG/5ML UDC PEG SCH (09:31)
[2022-12-24] MEDS: METHYLPREDNISOLONE SOD SUCC 40 MG/ML VIAL IV SCH (09:32)
[2022-12-24] MEDS: MIDODRINE HCL 5MG TABLET PO SCH ×3 (09:32→17:00)
[2022-12-24] MEDS: POLYETHYLENE GLYCOL 3350 (17GM) 1 DOSE PACK PEG SCH (09:32)
[2022-12-24] MEDS: ASPIRIN 81MG TABLET PO SCH (09:34)
[2022-12-24 12:00] VITALS: BP 124/65
[2022-12-24] MEDS: DEXTROSE 5% WATER 1,000 ML IV SCH ×2 (12:05→23:11)
[2022-12-24 13:51] LABS: PLATELET ESTIMATE NORMAL
[2022-12-24] MEDS: ENOXAPARIN 30MG/0.3ML SYR SUBCUT SCH (15:51)
[2022-12-24 16:00] VITALS: BP 127/68
[2022-12-24 20:00] VITALS: BP 112/62
[2022-12-24] MEDS: MICAFUNGIN 100 MG in SODIUM CHLORIDE 0.9% 100 ML IV SCH (21:08)
[2022-12-25] VITALS: BP 126/64
[2022-12-25 04:00] VITALS: BP 136/97
[2022-12-25] MEDS: INSULIN LISPRO 100 UNITS/ML SUBCUT SCH ×3 (05:16→17:43)
[2022-12-25] MEDS: BLOOD SUGAR DIAGNOSTIC STRIP TEST SCH ×3 (05:16→17:37)
[2022-12-25 08:00] VITALS: BP 131/77
[2022-12-25] MEDS: MIDODRINE HCL 5MG TABLET PO SCH ×3 (09:00→17:00)
[2022-12-25] MEDS: ASPIRIN 81MG TABLET PO SCH (09:52)
[2022-12-25] MEDS: DOCUSATE SODIUM SUGAR FREE 100MG/10ML UDC NG SCH ×2 (09:52→17:19)
[2022-12-25] MEDS: METHYLPREDNISOLONE SOD SUCC 40 MG/ML VIAL IV SCH (09:53)
[2022-12-25] MEDS: POLYETHYLENE GLYCOL 3350 (17GM) 1 DOSE PACK PEG SCH (09:53)
[2022-12-25] MEDS: FERROUS SULFATE 300MG/5ML UDC PEG SCH (09:54)
[2022-12-25 12:00] VITALS: BP 125/60
[2022-12-25] MEDS: DEXTROSE 5% WATER 1,000 ML IV SCH (14:03)
[2022-12-25] MEDS: ENOXAPARIN 30MG/0.3ML SYR SUBCUT SCH (15:00)
[2022-12-25 16:00] VITALS: BP 127/61
[2022-12-25] MEDS ORDERED: FUROSEMIDE 20MG/2ML VIAL IVP NR (19:15)
[2022-12-25 20:00] VITALS: BP 136/75
[2022-12-25] MEDS: MICAFUNGIN 100 MG in SODIUM CHLORIDE 0.9% 100 ML IV SCH (22:00)
[2022-12-26] VITALS: BP 140/71
[2022-12-26] MEDS: BLOOD SUGAR DIAGNOSTIC STRIP TEST SCH ×5 (00:43→23:39)
[2022-12-26] MEDS: INSULIN LISPRO 100 UNITS/ML SUBCUT SCH ×5 (00:44→23:39)
[2022-12-26] MEDS: DEXTROSE 5% WATER 1,000 ML IV SCH (03:00)
[2022-12-26 04:00] VITALS: BP 130/74
[2022-12-26 05:13] LABS: HEMATOCRIT. 27.1 % (36.0-48.0); HEMOGLOBIN. 8.7 g/dL (12.0-16.0); MEAN CORPUSCULAR VOLUME 86.8 fL (81.0-99.0); MEAN PLATELET VOLUME 9.9 fl (7.4-10.4); PLATELET 102 x1000/uL (130-400); RED BLOOD CELL COUNT 3.12 mill/uL (4.2-5.4)
[2022-12-26 05:35] LABS: CHLORIDE 112 mEq/L (98-107)
[2022-12-26 07:55] VITALS: BP 110/66
[2022-12-26] MEDS: METHYLPREDNISOLONE SOD SUCC 40 MG/ML VIAL IV SCH (08:18)
[2022-12-26] MEDS: DOCUSATE SODIUM SUGAR FREE 100MG/10ML UDC NG SCH ×2 (08:18→17:26)
[2022-12-26] MEDS: MIDODRINE HCL 5MG TABLET PO SCH ×3 (08:19→17:00)
[2022-12-26] MEDS: POLYETHYLENE GLYCOL 3350 (17GM) 1 DOSE PACK PEG SCH (08:19)
[2022-12-26] MEDS: FERROUS SULFATE 300MG/5ML UDC PEG SCH (08:19)
[2022-12-26] MEDS: ASPIRIN 81MG TABLET PO SCH (08:19)
[2022-12-26 12:00] VITALS: BP 112/74
[2022-12-26 14:54] LABS: NUCLEATED RED BLOOD CELLS 1 /100 WBC
[2022-12-26 14:55] LABS: PLATELET ESTIMATE DECREASED
[2022-12-26 16:10] VITALS: BP 160/72
[2022-12-26] MEDS: ENOXAPARIN 30MG/0.3ML SYR SUBCUT SCH (16:41)
[2022-12-26 20:00] VITALS: BP 111/62
[2022-12-26] MEDS: MICAFUNGIN 100 MG in SODIUM CHLORIDE 0.9% 100 ML IV SCH (21:21)
[2022-12-26] MEDS ORDERED: ENOXAPARIN 30MG/0.3ML SYR SUBCUT NR (22:00)
[2022-12-27] VITALS: BP 98/59
[2022-12-27 04:00] VITALS: BP 123/71
[2022-12-27] MEDS: INSULIN LISPRO 100 UNITS/ML SUBCUT SCH ×3 (05:30→19:01)
[2022-12-27] MEDS: BLOOD SUGAR DIAGNOSTIC STRIP TEST SCH ×3 (05:30→18:00)
[2022-12-27 05:53] LABS: INR 0.9
[2022-12-27 06:15] LABS: CHLORIDE 112 mEq/L (98-107)
[2022-12-27 06:28] LABS: BASOPHILS % 0.3 % (0.0-2.0); EOSINOPHILS % 1.5 % (0.0-5.0); HEMATOCRIT. 23.6 % (36.0-48.0); HEMOGLOBIN. 7.5 g/dL (12.0-16.0); LYMPHOCYTES % 7.2 % (20.0-50.0); MEAN CORPUSCULAR HEMOGLOBIN 27.7 pg (28.0-32.0); MEAN CORPUSCULAR VOLUME 86.6 fL (81.0-99.0); MEAN PLATELET VOLUME 10.4 fl (7.4-10.4); MONOCYTES % 5.6 % (2.0-8.0); NEUTROPHILS % 85.4 % (40.0-76.0); PLATELET 95 x1000/uL (130-400); RED BLOOD CELL COUNT 2.72 mill/uL (4.2-5.4); RED CELL DISTRIBUTION WIDTH 18.6 % (11.6-14.6)
[2022-12-27 08:00] VITALS: BP 125/74
[2022-12-27] MEDS: MIDODRINE HCL 5MG TABLET PO SCH ×3 (09:00→19:03)
[2022-12-27] MEDS: FERROUS SULFATE 300MG/5ML UDC PEG SCH (09:00)
[2022-12-27] MEDS: METHYLPREDNISOLONE SOD SUCC 40 MG/ML VIAL IV SCH (09:00)
[2022-12-27] MEDS: DOCUSATE SODIUM SUGAR FREE 100MG/10ML UDC NG SCH ×2 (09:00→17:00)
[2022-12-27] MEDS: ASPIRIN 81MG TABLET PO SCH (09:00)
[2022-12-27 12:00] VITALS: BP_SYST 115; BP_SYST 124; BP_DIAS 72; BP_DIAS 77
[2022-12-27] MEDS: POLYETHYLENE GLYCOL 3350 (17GM) 1 DOSE PACK PEG SCH (13:00)
[2022-12-27 16:00] VITALS: BP 120/74
[2022-12-27 20:00] VITALS: BP 107/57
[2022-12-27] MEDS ORDERED: ENOXAPARIN 60MG/0.6ML SYR SUBCUT SCH (23:00)
[2022-12-28] VITALS (11 sets, daily range): BP systolic 90–134; BP diastolic 31–75
[2022-12-28] MEDS: BLOOD SUGAR DIAGNOSTIC STRIP TEST SCH ×5 (00:16→23:31)
[2022-12-28] MEDS: INSULIN LISPRO 100 UNITS/ML SUBCUT SCH ×5 (06:00→23:43)
[2022-12-28] MEDS ORDERED: CEFAZOLIN 1000MG PREMIX 50 ML IV ONE (07:15)
[2022-12-28] MEDS ORDERED: CLINDAMYCIN 300 MG IV NR (08:00)
[2022-12-28] MEDS: DOCUSATE SODIUM SUGAR FREE 100MG/10ML UDC NG SCH ×2 (08:29→16:51)
[2022-12-28] MEDS: POLYETHYLENE GLYCOL 3350 (17GM) 1 DOSE PACK PEG SCH (08:29)
[2022-12-28] MEDS: FERROUS SULFATE 300MG/5ML UDC PEG SCH (08:30)
[2022-12-28] MEDS: MIDODRINE HCL 5MG TABLET PO SCH ×3 (08:32→17:09)
[2022-12-28] MEDS: ASPIRIN 81MG TABLET PO SCH ×2 (08:33→11:30)
[2022-12-28] MEDS ORDERED: IOHEXOL-300 100 ML BOTTLE ONE (08:37)
[2022-12-28] MEDS ORDERED: LIDOCAINE HCL 1% 10 MG/ML 10ML VIAL ONE (08:37)
[2022-12-28] MEDS ORDERED: IOHEXOL-300 50 ML BOTTLE IV ONE (08:37)
[2022-12-28 15:54] LABS: BASOPHILS % 0.4 % (0.0-2.0); EOSINOPHILS % 0.7 % (0.0-5.0); HEMOGLOBIN. 7.7 g/dL (12.0-16.0); LYMPHOCYTES % 12.4 % (20.0-50.0); MEAN CORPUSCULAR HEMOGLOBIN 27.5 pg (28.0-32.0); MEAN CORPUSCULAR VOLUME 85.9 fL (81.0-99.0); MEAN PLATELET VOLUME 10.2 fl (7.4-10.4); MONOCYTES % 3.8 % (2.0-8.0); NEUTROPHILS % 82.7 % (40.0-76.0); PLATELET 85 x1000/uL (130-400); RED BLOOD CELL COUNT 2.79 mill/uL (4.2-5.4)
[2022-12-28] MEDS ORDERED: IPRATROPIUM/ALBUTEROL 0.5-3(2.5)MG/3ML NEB ONE (16:42)
[2022-12-28] MEDS: IPRATROPIUM/ALBUTEROL 0.5-3(2.5)MG/3ML NEB HHN SCH ×2 (16:55→21:28)
[2022-12-28 16:58] LABS: BG BASE EXCESS -0.8 mmol/L (-2.0-2.0); BG CARBOXYHEMOGLOBIN 0.6 % (0.5-1.5); BG DEOXYHEMOGLOBIN 25.1 % (0.0-5.0); BG FRACTION INSPIRED OXYGEN 36; BG HCO3 ACT 24.6 mmol/L (22.0-26.0); BG METHEMOGLOBIN 0.5 % (0.0-1.5); BG OXYGEN SATURATION 74.6 % (92.0-98.5); BG OXYHEMOGLOBIN 73.8 % (94.0-97.0); BG PH 7.365 (7.350-7.450); BG PO2 44.6 mmHg (75.0-100.0); BG SAMPLE SITE RIGHT RADIAL; BG TOTAL HEMOGLOBIN 8.5 g/dL (12.0-18.0); BG VENT MODE NASAL CANNULA
[2022-12-28] MEDS ORDERED: FUROSEMIDE 40MG/4ML VIAL IVP NR (17:15)
[2022-12-28] MEDS ORDERED: MEROPENEM 500 MG in SODIUM CHLORIDE 0.9% 50 ML IV SCH (17:45)
[2022-12-28 18:10] LABS: CHLORIDE 114 mEq/L (98-107)
[2022-12-28] MEDS: METHYLPREDNISOLONE SOD SUCC 40 MG/ML VIAL IV SCH (18:17)
[2022-12-28] MEDS: MEROPENEM 1000MG in NORMAL SALINE 100ML IV SCH (20:14)
[2022-12-28] MEDS: VANCOMYCIN 1G PREMIX 200 ML IV SCH (21:08)
[2022-12-29] VITALS (10 sets, daily range): BP systolic 96–131; BP diastolic 56–76
[2022-12-29] MEDS: MEROPENEM 1000MG in NORMAL SALINE 100ML IV SCH ×3 (03:57→19:30)
[2022-12-29] MEDS: BLOOD SUGAR DIAGNOSTIC STRIP TEST SCH ×4 (05:19→23:22)
[2022-12-29] MEDS: METHYLPREDNISOLONE SOD SUCC 40 MG/ML VIAL IV SCH ×2 (05:19→18:37)
[2022-12-29] MEDS: INSULIN LISPRO 100 UNITS/ML SUBCUT SCH ×4 (05:30→23:29)
[2022-12-29 07:45] LABS: HEMATOCRIT. 22.9 % (36.0-48.0); HEMOGLOBIN. 7.2 g/dL (12.0-16.0); MEAN CORPUSCULAR HEMOGLOBIN 27.9 pg (28.0-32.0); MEAN CORPUSCULAR VOLUME 88.5 fL (81.0-99.0); PLATELET 77 x1000/uL (130-400); RED BLOOD CELL COUNT 2.59 mill/uL (4.2-5.4)
[2022-12-29 08:12] LABS: CHLORIDE 115 mEq/L (98-107)
[2022-12-29] MEDS: IPRATROPIUM/ALBUTEROL 0.5-3(2.5)MG/3ML NEB HHN SCH ×4 (08:19→20:31)
[2022-12-29] MEDS: DOCUSATE SODIUM SUGAR FREE 100MG/10ML UDC NG SCH ×2 (09:17→17:00)
[2022-12-29] MEDS: FERROUS SULFATE 300MG/5ML UDC PEG SCH (09:18)
[2022-12-29] MEDS: ASPIRIN 81MG TABLET PO SCH (09:18)
[2022-12-29] MEDS: MIDODRINE HCL 5MG TABLET PO SCH ×3 (09:18→18:37)
[2022-12-29] MEDS: POLYETHYLENE GLYCOL 3350 (17GM) 1 DOSE PACK PEG SCH (09:18)
[2022-12-29] MEDS ORDERED: POTASSIUM CHLORIDE INJ 40 MEQ in DEXT 5% WATER 250 ML IV ONE (10:00)
[2022-12-29] MEDS ORDERED: FUROSEMIDE 40MG/4ML VIAL IVP NR (10:30)
[2022-12-29] MEDS: DEXTROSE 5% WATER 1,000 ML IV SCH (10:47)
[2022-12-29] MEDS: KCL 20MEQ/100ML X 2 FOR TOTAL KCL 40MEQ/200ML IV SCH ×2 (10:48→13:30)
[2022-12-29] MEDS: VANCOMYCIN 1G PREMIX 200 ML IV SCH (21:09)
[2022-12-29 21:11] LABS: NUCLEATED RED BLOOD CELLS 4 /100 WBC; PLATELET ESTIMATE DECREASED
[2022-12-30] VITALS (10 sets, daily range): BP systolic 101–140; BP diastolic 57–101
[2022-12-30] MEDS: IPRATROPIUM/ALBUTEROL 0.5-3(2.5)MG/3ML NEB HHN SCH ×4 (00:23→11:13)
[2022-12-30] MEDS: MEROPENEM 1000MG in NORMAL SALINE 100ML IV SCH ×2 (03:26→11:54)
[2022-12-30] MEDS: METHYLPREDNISOLONE SOD SUCC 40 MG/ML VIAL IV SCH (05:14)
[2022-12-30] MEDS: BLOOD SUGAR DIAGNOSTIC STRIP TEST SCH ×2 (05:14→11:39)
[2022-12-30] MEDS: INSULIN LISPRO 100 UNITS/ML SUBCUT SCH ×2 (05:20→11:43)
[2022-12-30 06:25] LABS: HEMATOCRIT. 21.4 % (36.0-48.0); MEAN CORPUSCULAR HEMOGLOBIN 27.9 pg (28.0-32.0); MEAN CORPUSCULAR VOLUME 88.6 fL (81.0-99.0); MEAN PLATELET VOLUME 10.3 fl (7.4-10.4); PLATELET 74 x1000/uL (130-400); RED BLOOD CELL COUNT 2.42 mill/uL (4.2-5.4); RED CELL DISTRIBUTION WIDTH 21.2 % (11.6-14.6)
[2022-12-30 06:28] LABS: HEMOGLOBIN. 6.8 g/dL (12.0-16.0)
[2022-12-30 06:52] LABS: CHLORIDE 112 mEq/L (98-107)
[2022-12-30] MEDS: FERROUS SULFATE 300MG/5ML UDC PEG SCH (08:42)
[2022-12-30] MEDS: POLYETHYLENE GLYCOL 3350 (17GM) 1 DOSE PACK PEG SCH (08:42)
[2022-12-30] MEDS: DOCUSATE SODIUM SUGAR FREE 100MG/10ML UDC NG SCH (08:42)
[2022-12-30] MEDS: ASPIRIN 81MG TABLET PO SCH (08:42)
[2022-12-30] MEDS ORDERED: POTASSIUM CHLORIDE INJ 40 MEQ in DEXT 5% WATER 250 ML IV ONE (09:00)
[2022-12-30] MEDS: MIDODRINE HCL 5MG TABLET PO SCH ×2 (09:00→12:26)
[2022-12-30] MEDS: DEXTROSE 5% WATER 1,000 ML IV SCH (09:44)
[2022-12-30] MEDS: KCL 20MEQ/100ML X 2 FOR TOTAL KCL 40MEQ/200ML IV SCH ×2 (10:23→12:24)
[2022-12-30 10:53] LABS: HEMATOCRIT 21.9 % (36.0-48.0)
[2022-12-30 11:00] LABS: HEMOGLOBIN 6.8 g/dL (12.0-16.0)
[2022-12-30 13:40] LABS: NUCLEATED RED BLOOD CELLS 9 /100 WBC; PLATELET ESTIMATE DECREASED
[2022-12-30] MEDS ORDERED: ACETYLCYSTEINE 200MG/ML 20% VIAL 4ML INH SCH (15:00)
[2022-12-30] MEDS ORDERED: LORAZEPAM 2MG/ML CPJ IV PRN (15:30)
[2022-12-30] MEDS ORDERED: NALOXONE HCL 0.4MG/ML VIAL IV PRN (15:45)
[2022-12-30] MEDS: MORPHINE SULFATE 2 MG/ML CPJ (NOT FOR IM USE) IV PRN (17:57)
[2022-12-31] VITALS: BP 114/67
[2022-12-31 04:00] VITALS: BP 109/58
[2022-12-31] MEDS: MORPHINE SULFATE 2 MG/ML CPJ (NOT FOR IM USE) IV PRN ×5 (04:37→18:55)
[2022-12-31 08:00] VITALS: BP 117/65
[2022-12-31 12:00] VITALS: BP 109/70
[2022-12-31 16:00] VITALS: BP 87/54
[2022-12-31 18:55] VITALS: BP 82/51
== END 2022-12-31 22:46 | DRG 871 ==
LOC: ER 14:26 → MICUNO 16:14 → EDBEDREQSVC 16:16 → MICUSO 12-04 14:00 → 5EST 12-12 13:49 → 7WST 12-23 10:40 → 8WST 12-26 11:46 → 5EST 12-29 00:32 → 6EST 12-31 19:20
PROVIDERS: ADMIT Internal Medicine; ATTEND Internal Medicine
PROC: 5A09357 Assistance with Respiratory Ventilation, Less than 24 Consecutive Hours, Continuous Positive Airway Pressure (ICD-10-PCS; 2022-12-02)
PROC: 5A0945A Assistance with Respiratory Ventilation, 24-96 Consecutive Hours, High Flow/Velocity Cannula (ICD-10-PCS; 2022-12-03)
PROC: 5A0935A Assistance with Respiratory Ventilation, Less than 24 Consecutive Hours, High Flow/Velocity Cannula (ICD-10-PCS; 2022-12-04)
PROC: 5A09457 Assistance with Respiratory Ventilation, 24-96 Consecutive Hours, Continuous Positive Airway Pressure (ICD-10-PCS; 2022-12-04)
PROC: 5A09357 Assistance with Respiratory Ventilation, Less than 24 Consecutive Hours, Continuous Positive Airway Pressure (ICD-10-PCS; 2022-12-04)
PROC: 02HV33Z Insertion of Infusion Device into Superior Vena Cava, Percutaneous Approach (ICD-10-PCS; 2022-12-05)
PROC: B548ZZA Ultrasonography of Superior Vena Cava, Guidance (ICD-10-PCS; 2022-12-05)
PROC: 5A0935A Assistance with Respiratory Ventilation, Less than 24 Consecutive Hours, High Flow/Velocity Cannula (ICD-10-PCS; 2022-12-07)
PROC: 5A09357 Assistance with Respiratory Ventilation, Less than 24 Consecutive Hours, Continuous Positive Airway Pressure (ICD-10-PCS; 2022-12-07)
PROC: 5A0935A Assistance with Respiratory Ventilation, Less than 24 Consecutive Hours, High Flow/Velocity Cannula (ICD-10-PCS; 2022-12-08)
PROC: 5A09357 Assistance with Respiratory Ventilation, Less than 24 Consecutive Hours, Continuous Positive Airway Pressure (ICD-10-PCS; 2022-12-08)
PROC: 5A0945A Assistance with Respiratory Ventilation, 24-96 Consecutive Hours, High Flow/Velocity Cannula (ICD-10-PCS; 2022-12-09)
PROC: 5A0935A Assistance with Respiratory Ventilation, Less than 24 Consecutive Hours, High Flow/Velocity Cannula (ICD-10-PCS; 2022-12-11)
PROC: 4A00X4Z Measurement of Central Nervous Electrical Activity, External Approach (ICD-10-PCS; 2022-12-12)
PROC: 5A0935A Assistance with Respiratory Ventilation, Less than 24 Consecutive Hours, High Flow/Velocity Cannula (ICD-10-PCS; 2022-12-12)
PROC: 5A0935A Assistance with Respiratory Ventilation, Less than 24 Consecutive Hours, High Flow/Velocity Cannula (ICD-10-PCS; 2022-12-13)
PROC: 5A0945A Assistance with Respiratory Ventilation, 24-96 Consecutive Hours, High Flow/Velocity Cannula (ICD-10-PCS; 2022-12-15)
PROC: 0DB78ZX Excision of Stomach, Pylorus, Via Natural or Artificial Opening Endoscopic, Diagnostic (ICD-10-PCS; principal; 2022-12-20)
PROC: 0DH63UZ Insertion of Feeding Device into Stomach, Percutaneous Approach (ICD-10-PCS; 2022-12-20)
PROC: 06H03DZ Insertion of Intraluminal Device into Inferior Vena Cava, Percutaneous Approach (ICD-10-PCS; 2022-12-28)
PROC: 5A0945A Assistance with Respiratory Ventilation, 24-96 Consecutive Hours, High Flow/Velocity Cannula (ICD-10-PCS; 2022-12-28)
DX: A41.9 Sepsis, unspecified organism (principal); E43 Unspecified severe protein-calorie malnutrition; J96.01 Acute respiratory failure with hypoxia; N17.0 Acute kidney failure with tubular necrosis; R65.21 Severe sepsis with septic shock; J96.21 Acute and chronic respiratory failure with hypoxia; I50.23 Acute on chronic systolic (congestive) heart failure; I48.20 Chronic atrial fibrillation, unspecified; K81.0 Acute cholecystitis; E87.0 Hyperosmolality and hypernatremia; I42.9 Cardiomyopathy, unspecified; K56.7 Ileus, unspecified; I82.402 Acute embolism and thrombosis of unspecified deep veins of left lower extremity; J91.8 Pleural effusion in other conditions classified elsewhere; B37.49 Other urogenital candidiasis; Z66 Do not resuscitate; D75.839 Thrombocytosis, unspecified; D64.9 Anemia, unspecified; G30.9 Alzheimer's disease, unspecified; Z20.822 Contact with and (suspected) exposure to COVID-19; I11.0 Hypertensive heart disease with heart failure; I35.8 Other nonrheumatic aortic valve disorders; L89.159 Pressure ulcer of sacral region, unspecified stage; K44.9 Diaphragmatic hernia without obstruction or gangrene; K29.70 Gastritis, unspecified, without bleeding; G40.909 Epilepsy, unspecified, not intractable, without status epilepticus; E88.09 Other disorders of plasma-protein metabolism, not elsewhere classified; I73.9 Peripheral vascular disease, unspecified; R13.12 Dysphagia, oropharyngeal phase; R62.7 Adult failure to thrive; F02.80 Dementia in other diseases classified elsewhere, unspecified severity, without behavioral disturbance, psychotic disturbance, mood disturbance, and anxiety; Z95.828 Presence of other vascular implants and grafts; Z88.0 Allergy status to penicillin; Z79.82 Long term (current) use of aspirin; Z68.24 Body mass index [BMI] 24.0-24.9, adult; Z79.899 Other long term (current) drug therapy; Z93.1 Gastrostomy status; I25.2 Old myocardial infarction; X58.XXXA Exposure to other specified factors, initial encounter; Y93.9 Activity, unspecified; Y92.89 Other specified places as the place of occurrence of the external cause; Y99.8 Other external cause status
CPT/HCPCS: 36415; 36573; 36600; 37191; 71045; 71250; 74018; 76604; 76705; 76770; 78580; 80048; 80053; 80061; 80202; 81003; 82040; 82270; 82375; 82550; 82553; 82607; 82728; 82746; 82805; 82962; 83036; 83540; 83550; 83605; 83735; 83880; 84100; 84134; 84145; 84439; 84443; 84484; 85014; 85018; 85025; 85027; 85044; 85379; 87070; 87106; 87426; 88305; 93005; 93306; 93970; 94640; 94660; 94667; 95816; 97161; 99291; A6261; C1725; C1769; C1880; J0282; J0692; J1100; J1160; J1630; J1650; J1815; J1940; J1956; J2060; J2185; J2248; J2270; J2370; J2405; J2765; J2920; J2930; J3370; J3480; J3490; J7030; J7050; J7060; J7070; J7608; P9047; Q9967; A4315